=== PATIENT | male | born 1940 | race Hispanic/Latino ===

== ENCOUNTER 2019-09-03 10:11 | Inpatient (IN) | payer MEDICARE, OTHER ==
[2019-09-03 11:11] LABS: Mean Corpuscular HGB CONC 34.3 g/dL (32.0-36.0); Mean Corpuscular Hemoglobin 33.4 pg (27.0-31.0); Mean Corpuscular Volume 97.5 fL (78.0-98.0); Mean Platelet Volume 7.9 fL (7.4-10.4); Platelet Count 250 thou/uL (130-400); RBC Distribution Width 12.9 % (11.5-14.5); White Blood Cell (WBC) Count 14.5 thou/uL (4.8-10.8)
[2019-09-03] MEDS ORDERED: Tuberculin PPD 0.1 ML VIAL I-DERMAL SCH (11:15)
--- NOTE | 2019-09-03 11:27 | HP ---
HISTORY OF PRESENT ILLNESS: Timothy Castillo is an 79-year-old male patient who lives in [place], [place]ian speaking only. He is moved from out of state to be with his family. The patient and his lives with her daughter in [place]. He has been followed by Dr. Pimentel for hypertensive and diabetic nephropathy, chronic kidney disease, progressing to the point that he needs dialysis access. He is brought in today for that. He was told to come to the emergency room, and I was informed that he would be coming in, thus I intercepted, called the family, provided orders and I am seeing him in preoperative holding prior to establishing hemodialysis catheter, possible central line and left arm fistula. He is right handed. 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 ALLERGIES: NONE. TOBACCO: None. ALCOHOL: Rarely. MEDICATIONS: 1. Tylenol 325 mg as needed. 2. Amlodipine 10 mg a day. 3. Aspirin 81 mg a day. 4. Calcitriol 0.5 mcg capsule daily. 5. Carvedilol 6.25 mg daily. 6. Cholecalciferol daily. 7. Colace. 8. Furosemide 20 mg daily. 9. Gemfibrozil 600 mg two tablets b.i.d. 10. Januvia 25 mg daily. 11. Protonix 40 mg a day. 12. Pravastatin 20 mg at bedtime. 13. Sodium bicarbonate daily. 14. Tresiba insulin 200 units per meal subcutaneous. PAST SURGICAL HISTORY: Colonoscopy 2 to 3 [place] ago out of state. PAST MEDICAL HISTORY: Hypertension, diabetes, insulin-dependent. He saw international coordinator in [place] last year. Sounds like he had an EKG and echo for asymptomatic screening and was told his heart was fine. Review of systems negative for cardiac. He had a stroke in March 2019, has been undergoing rehab with left arm weakness. The patient is ambulatory independently. REVIEW OF SYSTEMS: 10 point noncontributory. FAMILY HISTORY: Noncontributory. PHYSICAL EXAMINATION: VITAL SIGNS: Heart rate 65, 94% sats, 150/78. HEAD, EARS EYES, NOSE AND THROAT: Unremarkable. Sclerae nonicteric. SKIN: Nonjaundiced. LUNGS: Clear to auscultation. CARDIAC: Regular rate and rhythm. No murmur or gallop. ABDOMEN: Soft, obese, nontender. EXTREMITIES: Unremarkable. Palpable radial pulses. LABORATORY DATA: Pending. EKG pending. ASSESSMENT AND PLAN: 1. End-stage renal disease. We will order preoperative labs, order preoperative COVID for future dialysis placement outpatient. We will place hemodialysis catheter, central line in the left arm fistula graft. He understands risks of infection, bleeding, reoperation, complications of fistula graft including ischemia, reoperation, thrombosis. 2. Diabetes mellitus. 3. Hypertension. 4. Recent stroke with left arm weakness. Job ID: [id number]
[2019-09-03 11:32] LABS: ALT (SGPT) 9 U/L (8-55); AST (SGOT) 13 U/L (5-34); Albumin 3.4 g/dL (3.4-4.8); Alkaline Phosphatase 67 U/L (40-110); Anion Gap 17 mmol/L (10-20); BUN (Urea Nitrogen) 51 mg/dL (8.4-25.7); Bilirubin, Total 0.3 mg/dL (0.2-1.2); Calc. Creatinine Clearance 0 mL/min (70-130); Calcium 9.3 mg/dL (7.8-10.44); Carbon Dioxide 22 mmol/L (23-31); Chloride 107 mmol/L (98-107); Estimated GFR-MDRD 12; Globulin 2.7 g/dL (2.4-3.5); Glucose 66 mg/dL (83-110); Potassium 4.5 mmol/L (3.5-5.1); Protein, Total 6.1 g/dL (5.8-8.1); Sodium 141 mmol/L (136-145)
[2019-09-03 11:33] LABS: Band 1 % (5-11); Eosinophils 38 % (0-10); Lymphocytes 8 % (21-51); MDiff Complete? YES; Monocytes 9 % (0-10); Neutrophil 43 % (42-75); Platelet Morphology Comment Appears Adequate; RBC Morphology 1
[2019-09-03 12:03] LABS: HBCM Index 0.05 S/CO (0-0.79); Hep B Core Total Ab Non-Reactive (NonReactive); Hep B Core Total Index 0.06 S/CO (0-0.79); Hep C IgG Ab Non-Reactive (NonReactive); Hep C Index 0.17 S/CO (0-0.79); Hepatitis B Core IgM Abs Non-Reactive (NonReactive)
[2019-09-03] MEDS ORDERED: Fentanyl 100 MCG/2 ML VIAL ONE (13:42)
[2019-09-03] MEDS ORDERED: Heparin 5,000 UNITS/ML VIAL ONE (13:42)
[2019-09-03] MEDS ORDERED: Protamine Sulfate 50 MG/5 ML VIAL ONE (13:42)
[2019-09-03] MEDS ORDERED: Bupivacaine 0.25% HCL 30 ML VIAL ONE (13:42)
[2019-09-03] MEDS ORDERED: Heparin 10,000 UNITS/1 ML VIAL ONE (13:42)
[2019-09-03] MEDS ORDERED: Lidocaine 1% w/Epinephrine 1:100K 20 ML VIAL ONE (13:42)
[2019-09-03 14:11] LABS: HBSAg Index 0.15 S/CO (0-0.99); Hep B Core Total Ab Non-Reactive (NonReactive); Hep B Core Total Index 0.07 S/CO (0-0.79); Hep B Surf AB Non-Reactive (NonReactive); Hep B Surf Ag Non-Reactive S/CO (NonReactive); Hep C IgG Ab Non-Reactive (NonReactive); Hep C Index 0.19 S/CO (0-0.79)
[2019-09-03] MEDS ORDERED: Sodium Chloride 0.9% 30 ML ONE (14:27)
[2019-09-03] MEDS ORDERED: Ondansetron HCl/PF 4 MG/2 ML Vial IVP PRN (15:44)
[2019-09-03] MEDS ORDERED: Acetaminophen 500 MG TAB PO PRN (15:54)
--- NOTE | 2019-09-03 16:06 | RAD ---
RADIOGRAPH CHEST 1 VIEW: DATE: 09/03/2019 TIME: 3:54 PM HISTORY: 79-year-old male status post hemodialysis catheter and central venous catheter placement. COMPARISON: None FINDINGS: Double-lumen right IJ catheter with distal tips overlying SVC and SVC right atrial junction. Thin karen iber catheter descending from the left supraclavicular region, presumably left IJ, crossing upper mediastinum with distal tip overlying SVC. No pneumothorax. Cardiomegaly. No pulmonary edema. Silhoue tting of left hemidiaphragm. IMPRESSION: 1. Right-sided hemodialysis catheter placement and left-sided central venous catheter placement, with out pneumothorax. 2. Opacification at left base could be small left pleural effusion, basilar atelectasis, or pneumonia .
[2019-09-03] MEDS ORDERED: Acetaminophen 325 MG TAB PO PRN ×2 (17:49→18:28)
[2019-09-03] MEDS ORDERED: hydrALAZINE 20 MG/ML VIAL SLOW IVP PRN ×2 (17:52→18:28)
[2019-09-03] MEDS ORDERED: cloNIDine 0.1 MG TAB PO PRN ×2 (17:52→18:28)
[2019-09-03 18:25] LABS: SARS-CoV-2 MS2 Positive; SARS-CoV-2 N Gene Negative; SARS-CoV-2 S Gene Negative; SARS-CoV-2 orf1ab Negative
[2019-09-03] MEDS ORDERED: Dextrose 5% in Water 1,000 ML IV PRN (18:28)
[2019-09-03] MEDS ORDERED: Calcium Carbonate 500 MG ChewTAB PO PRN (18:28)
[2019-09-03] MEDS ORDERED: Ondansetron ODT 4 MG TAB PO PRN (18:28)
[2019-09-03] MEDS ORDERED: Dextrose 50% Abboject 50 ML SYRINGE SLOW IVP PRN (18:28)
[2019-09-03] MEDS ORDERED: HumaLOG 300 UNITS/3 ML VIAL SC PRN ×2 (18:28)
--- NOTE | 2019-09-03 18:51 | HP ---
PRIMARY CARE PHYSICIAN: Karlos in [place], who is a family nurse practitioner, and her number is [phone]. REASON FOR ADMISSION: For the placement of a dialysis catheter as well as an AV fistula and preparation for dialysis. HISTORY OF PRESENT ILLNESS: Mr. Garrett is a pleasant 79-year-old gentleman, who has a history of diabetes and hypertension. He is here with his daughter to have an AV fistula and dialysis catheter placed. They live in [place]. The daughter is acting as barn boss and she tells me that her father, Mr. Garrett recently arrived here from [place], where he was visiting other family members. There, he had suffered a stroke a few months back and had some left-sided weakness primarily of his shoulder. He has been undergoing physical therapy for this. He also has a history of chronic kidney disease and had been told that he would likely need dialysis anywhere between 6 months or so. This was by his Crime Scene Evidence Technician in [place]. 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 Dr. Pimentel had done some lab work on the patient and he has been sent over for an elective dialysis access placement and to initiate him on hemodialysis. The patient himself says he does not have any complaints. He denies any chest pain or shortness of breath. He denies feeling dizzy or lightheaded. No nausea. No vomiting. He denies any weakness. Essentially basically no symptoms. REVIEW OF SYSTEMS: All systems were reviewed and are negative except for that mentioned in the history of present illness. PAST MEDICAL HISTORY: Significant for diabetes mellitus, hypertension, elevated cholesterol, end-stage renal disease, on hemodialysis, recent cerebrovascular accident with left arm weakness. PAST SURGICAL HISTORY: Negative. ALLERGIES: NO KNOWN DRUG ALLERGIES. SOCIAL HISTORY: He is . He lives with family. He has 7 children. He is a nonsmoker and nondrinker. FAMILY HISTORY: Essentially unknown, but the daughter says possibly diabetes, hypercholesterolemia, and hypertension. CURRENT MEDICATIONS: Include; 1. Tresiba insulin 10 units daily. 2. Sodium bicarbonate 650 mg 2 tablets daily. 3. Pravastatin 20 mg at bedtime. 4. Pantoprazole 40 mg daily. 5. Acetaminophen 325 mg q.4 hours as needed. 6. Amlodipine 10 mg daily. 7. Aspirin 81 mg daily. 8. Calcitriol 0.5 mcg daily. 9. Carvedilol 6.25 mg daily. 10. Furosemide 20 mg daily. 11. Gemfibrozil 600 mg 2 tablets twice daily. 12. Januvia 25 mg daily. PHYSICAL EXAMINATION: GENERAL: He is alert and oriented. He appears to be in no acute distress. He is well developed and well nourished, very cooperative, smiling and making jokes. VITAL SIGNS: Blood pressure was 141/65, heart rate 65, respiratory rate of 16, and he is afebrile. HEENT: Pupils are equal, round, and reactive. Extraocular muscles are intact. Sclerae anicteric. Throat, no erythema, no exudates. NECK: No adenopathy. No bruits. LUNGS: There is no wheezing, no rales, no rhonchi. CARDIOVASCULAR: He had a normal S1, S2. No S3 or S4. I was able to appreciate a grade 2/6 systolic murmur. ABDOMEN: Obese, it is soft, nontender, and nondistended. Positive for bowel sounds. No rebound. No guarding. No organomegaly. EXTREMITIES: There is no clubbing or cyanosis. No edema. No calf tenderness. No joint effusions. NEUROLOGIC: Grossly nonfocal. SKIN AND INTEGUMENT: It is noted that he is hairless on his calves, but I was able to palpate a dorsalis pedis pulse bilaterally. There are no significant skin lesions. LABORATORY RESULTS: His sodium is 141, potassium 4.5, chloride is 107, CO2 is 22, BUN of 51, creatinine 4.66, glucose is 66. White blood cell count is 14.5, hemoglobin 10, hematocrit is 29.3, and platelet count was 250. He had an EKG that was read as sinus rhythm, the rate was 65. There are no ST wave changes. He had a lone Q-wave in lead III. ASSESSMENT: This is a pleasant 79-year-old gentleman, who has a history of; 1. Chronic kidney disease, stage 5, who is now requiring dialysis. Dr. Pimentel has made a decision to go ahead and initiate hemodialysis. He is being admitted for access placement and also placement into an outpatient dialysis center. The plan is for him to have access placed by Dr. Mott today. 2. Hypertension. Currently his blood pressure is well controlled. Once he is out of surgery, we will restart his home medications as well as p.r.n. medicines as needed. 3. Diabetes mellitus type 2, which is insulin requiring. We will continue a long-acting insulin. We may need to use Lantus in lieu of Tresiba and also place him on sliding scale. 4. He will be placed on deep venous thrombosis as well as continue pantoprazole for gastrointestinal prophylaxis. Job ID: [id number]
--- NOTE | 2019-09-03 18:58 | CON ---
DATE OF CONSULTATION: 09/03/2019 CONSULTING PHYSICIAN: Gerson Mott MD REASON FOR CONSULTATION: End-stage renal disease evaluation and care. REASON FOR ADMISSION: Not feeling well. HISTORY OF PRESENT ILLNESS: This is an 79-year-old male with history of CKD, hypertension, and diabetes, came to the hospital with worsening labs. He follows with Dr. Pimentel. No fever or chills. No nausea or vomiting. PAST MEDICAL HISTORY: Positive for hypertension, diabetes, and chronic kidney disease. PAST SURGICAL HISTORY: Colonoscopy. HOME MEDICATIONS: Reviewed. ALLERGIES: NO KNOWN DRUG ALLERGIES. SOCIAL HISTORY: No smoking, alcohol, or illicit drugs use. FAMILY HISTORY: No history of kidney disease. REVIEW OF SYSTEMS: CONSTITUTIONAL: Negative for weight loss or gain, ability to conduct usual activities. SKIN: Negative for rash, itching. EYES: Negative for double vision, pain. ENT/MOUTH: Negative for nose bleeding, neck stiffness, pain, tenderness. CARDIOVASCULAR: Negative for palpitations, dyspnea on exertion, orthopnea. RESPIRATORY: Negative for shortness of breath, wheezing, cough, hemoptysis, fever or night sweats. GASTROINTESTINAL: Negative for poor appetite, abdominal pain, heartburn, nausea, vomiting, constipation, or diarrhea. GENITOURINARY: Negative for urgency, frequency, dysuria, nocturia. MUSCULOSKELETAL: Negative for pain, swelling. NEUROLOGIC/PSYCHIATRIC: Negative for anxiety, depression. ALLERGY/IMMUNOLOGIC: Negative for skin rash, bleeding tendency. PHYSICAL EXAMINATION: GENERAL: Reveals an obese male, in no apparent distress. VITAL SIGNS: Temperature 98.6, pulse 78, respiratory rate 18, and blood pressure 150/78. HEENT: Atraumatic, normocephalic. Oral mucosa is moist. NECK: Supple. CARDIOVASCULAR: S1 and S2. Rate and rhythm regular. RESPIRATORY: Clear. GASTROINTESTINAL: Abdomen is soft. MUSCULOSKELETAL: 1+ edema. DERMATOLOGIC: No skin rash. NEUROLOGIC: Awake and alert. PSYCHIATRIC: Mood and affect normal. LABORATORY DATA: Hemoglobin is 10.0. Potassium 4.5, BUN is 51, and creatinine is 4.6. ASSESSMENT AND PLAN: 1. End-stage renal disease. Plan to start on dialysis. 2. Edema, controlled. 3. Hypertension. 4. Chronic anemia. Plan to start on dialysis. We will follow. Job ID: [id number]
[2019-09-03 20:01] VITALS: BMI 34.9
[2019-09-03] MEDS: traMADol HCl 50 MG TAB PO PRN (20:26)
[2019-09-03] MEDS: Heparin 5,000 UNITS/ML VIAL SC SCH (20:29)
[2019-09-03] MEDS: Insulin Glargine 8 UNITS in Pre-Filled Syringe 1 EACH SC SCH (20:29)
[2019-09-03] MEDS ORDERED: Simvastatin 20 MG TAB PO SCH (21:00)
[2019-09-04 06:10] LABS: Anion Gap 15 mmol/L (10-20); BUN (Urea Nitrogen) 54 mg/dL (8.4-25.7); Calc. Creatinine Clearance 16 mL/min (70-130); Calcium 9.5 mg/dL (7.8-10.44); Carbon Dioxide 20 mmol/L (23-31); Chloride 107 mmol/L (98-107); Estimated GFR-MDRD 13; Glucose 121 mg/dL (83-110); Potassium 4.2 mmol/L (3.5-5.1); Sodium 138 mmol/L (136-145)
[2019-09-04 06:30] LABS: Eosinophils 37 % (0-10); Hemoglobin 9.7 g/dL (14.0-18.0); Hypochromia SLIGHT = 6-15 cells (100X) (0-5/hpf); Lymphocytes 5 % (21-51); MDiff Complete? YES; Mean Corpuscular HGB CONC 34.8 g/dL (32.0-36.0); Mean Corpuscular Hemoglobin 33.3 pg (27.0-31.0); Mean Corpuscular Volume 95.7 fL (78.0-98.0); Monocytes 5 % (0-10); Neutrophil 53 % (42-75); Platelet Count 231 thou/uL (130-400); Platelet Morphology Comment Appears Adequate; RBC Distribution Width 12.6 % (11.5-14.5); White Blood Cell (WBC) Count 14.2 thou/uL (4.8-10.8)
[2019-09-04] MEDS ORDERED: Gemfibrozil 600 MG TAB PO SCH (07:30)
[2019-09-04] MEDS: Carvedilol 6.25 MG TAB PO SCH (08:42)
[2019-09-04] MEDS: Calcitriol 0.25 MCG CAP PO SCH (08:42)
[2019-09-04] MEDS: Heparin 5,000 UNITS/ML VIAL SC SCH ×3 (08:42→20:07)
[2019-09-04] MEDS: Furosemide 20 MG TAB PO SCH (08:42)
[2019-09-04] MEDS: Aspirin 81 mg Enteric Coated Tablet PO SCH (08:42)
[2019-09-04] MEDS: Amlodipine 10 MG TAB PO SCH (08:42)
[2019-09-04] MEDS ORDERED: Non-Formulary Item 1 EACH (Insulin Detemir [Levemir] 10 UNITS) SQ SCH (09:00)
[2019-09-04] MEDS ORDERED: Pantoprazole 40 MG GRANULES PACKET PO SCH (09:00)
[2019-09-04] MEDS ORDERED: Alogliptin 6.25 MG TAB PO SCH (09:30)
[2019-09-04] MEDS: Docusate 100 MG CAP PO SCH (09:55)
[2019-09-04] MEDS: HYDROcodone/Acetaminophen 5/325 mg Tablet PO PRN ×2 (10:55→17:56)
--- NOTE | 2019-09-04 11:27 | PDOC.HOSPP ---
- Subjective Encounter Date: 09/04/19 Encounter Time: 11:45 Subjective: pt up in bed complain of pain to his left shoulder. He denies any trauma. - Objective Vital Signs & Weight: Vital Signs (12 hours) Temp Pulse Resp BP BP Pulse Ox 09/04/19 09:00 95 09/04/19 08:42 76 162/77 H 09/04/19 07:20 98.0 F 76 18 162/77 H 95 09/04/19 04:00 98 F 78 18 145/88 H 97 09/04/19 00:00 97.9 F 64 18 147/73 H 94 L Weight Weight 185 lb Result Diagrams: 09/04/19 05:11 09/04/19 05:11 Additional Labs: Accuchecks 09/04/19 09/03/19 05:25 20:26 POC Glucose 140 H 99 Hospitalist ROS - Review of Systems Cardiovascular: denies: chest pain, palpitations, orthopnea, paroxysmal noc. dyspnea, edema, light headedness, other Gastrointestinal: denies: nausea, vomiting, abdominal pain, diarrhea, constipation, melena, hematochezia, other Musculoskeletal: reports: arm pain Skin: denies: rash, lesions, sandra, bruising, other - Medication Medications: Active Medications Generic Name Dose Route Start Last Admin Trade Name Freq PRN Reason Stop Dose Admin Acetaminophen 325 mg 09/03/19 18:28 09/03/19 20:27 Tylenol PO 325 mg Q4H PRN Administration Headache/Fever/Mild Pain (1-3) Hydrocodone Bitart/Acetaminophen 1 tab 09/03/19 18:28 09/04/19 10:55 [place] 5/325 PO 1 tab Q4H PRN Administration Moderate Pain (4-6) Alogliptin Benzoate 6.25 mg 09/04/19 09:30 09/04/19 09:59 Alogliptin PO 09/04/19 11:30 6.25 mg NOW LANRE Administration Amlodipine Besylate 10 mg 09/04/19 09:00 09/04/19 08:42 Norvasc PO 10 mg DAILY LANRE Administration Aspirin 81 mg 09/04/19 09:00 09/04/19 08:42 Ecotrin PO 81 mg DAILY LANRE Administration Calcitriol 0.5 mcg 09/04/19 09:00 09/04/19 08:42 Rocaltrol PO 0.5 mcg DAILY LANRE Administration Carvedilol 6.25 mg 09/04/19 09:00 09/04/19 08:42 Coreg PO 6.25 mg DAILY LANRE Administration Cholecalciferol 5,000 units 09/04/19 09:00 09/04/19 09:55 Vitamin D3 PO 5,000 units DAILY LANRE Administration Docusate Sodium 100 mg 09/04/19 09:00 09/04/19 09:55 Colace PO 100 mg DAILY LANRE Administration Furosemide 20 mg 09/04/19 09:00 09/04/19 08:42 Lasix PO 20 mg DAILY LANRE Administration Heparin Sodium (Porcine) 5,000 units 09/03/19 21:00 09/04/19 08:42 Heparin SC 5,000 units TID LANRE Administration Insulin Glargine 8 units/ 0.08 mls @ 0 mls/hr 09/03/19 21:00 09/03/19 20:29 Miscellaneous Medication SC Not Given HS LANRE Pantoprazole Sodium 40 mg 09/04/19 10:00 09/04/19 10:00 Protonix PO 09/04/19 12:00 40 mg NOW LANRE Administration Tramadol HCl 50 mg 09/03/19 15:54 09/03/19 20:26 Ultram PO 50 mg Q4H PRN Administration Pain 1-5 - Exam Heart: negative: RRR, no murmur, no gallops, no rubs, normal peripheral pulses, irregular, diminshed peripheral pulses, murmur present, II/IV, III/IV Respiratory: negative: CTAB, no wheezes, no rales, no ronchi, normal chest expansion, no tachypnea, normal percussion, rales, rhonchi, tachypneic, wheezes Gastrointestinal: negative: soft, non-tender, non-distended, normal bowel sounds , no palpable masses, no hepatomegaly, no splenomegaly, no bruit, no guarding, no rigidity, tender to palpation, distended, diminished bowl sounds, voluntary guarding Extremities: negative: no cyanosis, no clubbing, no edema, 1+ LE edema, 2+ LE edema, clubbing Musculoskeletal - other findings: left shoulder joint pain on palpation Hosp A/P (1) CKD (chronic kidney disease) stage 5, GFR 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 He is to start dialysis per nephro. He has a TD cath in right chest wall. will get xray of left shoulder. will hold his gemfibrozil due to his worsening creatinine clearance. He has significant eosinophilia, will call his daughter to see if any new meds have been started. He also has elevated wbc. will obtain his previous lab records from [place].
--- NOTE | 2019-09-04 11:58 | RAD ---
LEFT SHOULDER THREE VIEWS: HISTORY: Pain. COMPARISON: None. FINDINGS: There is narrowing of the subacromial space. No acute displaced fracture or malalignment. Ribs are in tact. Central venous catheter is incompletely seen. IMPRESSION: Likely left rotator cuff insufficiency. No acute osseous abnormality. POS: HOME
--- NOTE | 2019-09-04 12:22 | PRG ---
DATE OF SERVICE: 09/04/2019 SUBJECTIVE: Patient was seen and examined at bedside and overnight events noted. Patient denies any shortness of breath or chest pain or palpitation. No history of nausea or vomiting or diarrhea or fever or chills or cramps. OBJECTIVE: GENERAL: This is a well-built male, in no acute distress. VITAL SIGNS: Temperature 98.0. Heart rate 76. Respiratory rate 18. Blood pressure 162/77. HEENT: Atraumatic, normocephalic. Oral mucosa is moist NECK: Supple. CARDIOVASCULAR: S1, S2 heard. Rate and rhythm regular. RESPIRATORY: Clear to auscultation. GASTROINTESTINAL: Abdomen is soft. MUSCULOSKELETAL: No tenderness. No edema. DERMATOLOGIC: No skin rash. NEUROLOGIC: Alert and awake and oriented X3. No focal neurologic deficits. Moving all the extremities. PSYCHIATRIC: Mood and affect normal. LABORATORY DATA: Potassium 4.2, BUN is 54, and creatinine is 4.3. ASSESSMENT AND PLAN: 1. End-stage renal disease. Continue on dialysis as tolerated. 2. Edema, controlled. 3. Hypertension. 4. Anemia of chronic disease. We will plan to start on dialysis. Job ID: [id number]
[2019-09-04] MEDS: EPOETIN ALFA-EPBX (ESRD) 3,000 UNIT/ML VIAL IVP SCH (15:22)
[2019-09-04] MEDS: Cyclobenzaprine 10 MG TAB PO SCH ×2 (15:42→20:07)
[2019-09-04] MEDS: Simvastatin 5 MG TAB PO SCH (20:08)
[2019-09-04] MEDS: Insulin Glargine 8 UNITS in Pre-Filled Syringe 1 EACH SC SCH (20:08)
[2019-09-04] MEDS: traMADol HCl 50 MG TAB PO PRN (20:09)
[2019-09-05] MEDS: HYDROcodone/Acetaminophen 5/325 mg Tablet PO PRN ×2 (01:20→09:48)
--- NOTE | 2019-09-05 05:00 | OP ---
DATE OF PROCEDURE: 09/03/2019 PREOPERATIVE DIAGNOSES: Poor IV access and end-stage renal disease. POSTOPERATIVE DIAGNOSES: 1. Poor IV access and end-stage renal disease. 2. Admission to initiate dialysis and providing dialysis access. PROCEDURES PERFORMED: Right IJ cuffed tunneled hemodialysis catheter, AngioDynamics pre-curved. Left IJ central line, exploration of left wrist. FINDINGS: Cephalic vein of left wrist inadequate. Left arm primary arteriovenous fistula, perforating branch antecubital vein to the proximal radial artery with outflow cephalic vein only. Basilic vein outflow ligated. Retrograde and antecubital vein preserved. ANESTHESIA: Regional, TIVA, local with 0.5% Marcaine 30 mL mixed with 1% Xylocaine with epinephrine 20 mL. DESCRIPTION OF PROCEDURE: Patient was taken to the operating room, where he underwent intravenous sedation and left upper extremity regional anesthesia. Neck, chest, and left upper extremity were prepared with ChloraPrep and draped in routine fashion. Local anesthetic was infiltrated in the skin and subcutaneous tissue about the operative sites for placement of central lines. Ultrasound used to cannulate both the right and left internal jugular veins, threading J wires, removed the trocar catheters, enlarging skin site sharply. Stab incision was made over the right chest. Using the tunneling device, the pre-curved AngioDynamics cuffed tunneled. Hemodialysis catheter tunneled between the 2 incisions, placed the fabric cuff beneath the skin exit site, catheter secured with 2 interrupted sutures of 3-0 nylon. Small and medium size dilators placed over the J-wire into the internal jugular vein removed. Dilator and Peel-Away sheath placed over the J-wire in superior vena cava. Dilator and J-wire were removed. Catheter placed with the Peel-Away sheath. Peel-Away sheath removed. Platysma was approximated with 4-0 Monocryl, skin with subdermal 4-0 Monocryl and [place] glue applied. Each port aspirated blood and flushed with saline solution and heparinized saline solution 1000 units of heparin per mL indicating volume of the port. Seldinger technique used to place a left IJ triple-lumen catheter, removing the J-wire, secured the catheter 3-0 nylon suture. Each port aspirated blood, flushed with saline solution. Fluoroscopic images revealed good placement of both lines. Attention was then turned to the left arm. A longitudinal incision was made below the antecubital fossa along skin and subcutaneous tissue and the antecubital vein was large enough that I thought it was worth exploring the left wrist. Wrist incision was made. Cephalic vein here was too small. Subcutaneous tissue was approximated with 3-0 Monocryl, skin and subdermal 4-0 Monocryl. Perforating branch antecubital vein dissected free, branches were divided between clips. It was spatulated over branch point, interrogated with coronary dilators, passing coronary dilators from 2 mm to 4 mm coronary dilator throughout the cephalic vein without obstruction. Cephalic vein was very large. It was flushed with heparinized saline solution. Patient was given 6000 units of heparin intravenously. Proximal radial artery dissected free, clamped proximally and distally, longitudinal arteriotomy made, elongated sharply and the end perforating branch antecubital vein to side proximal radial artery, anastomosis created with continuous suture of 6-0 Prolene, completing the anastomosis, gained hemostasis with 6-0 Prolene releasing arterial inflow and noting good Doppler signals cephalic vein outflow. Basilic vein was ligated with 3-0 Monocryl suture. Retrograde and antecubital vein preserved. Good hemostasis noted. Patient was given 25 mg of protamine intravenously by Anesthesia. Subcutaneous tissue was approximated with 3-0 Monocryl, skin with subdermal 4-0 Monocryl and [place] glue applied. Job ID: [id number]
[2019-09-05] MEDS ORDERED: READ PPD TEST SITE PO SCH (09:00)
[2019-09-05] MEDS: Alogliptin 6.25 MG TAB PO SCH (09:45)
[2019-09-05] MEDS: Cyclobenzaprine 10 MG TAB PO SCH ×3 (09:46→20:14)
[2019-09-05] MEDS: Carvedilol 6.25 MG TAB PO SCH (09:46)
[2019-09-05] MEDS: Aspirin 81 mg Enteric Coated Tablet PO SCH (09:46)
[2019-09-05] MEDS: Furosemide 20 MG TAB PO SCH (09:46)
[2019-09-05] MEDS: Calcitriol 0.25 MCG CAP PO SCH (09:47)
[2019-09-05] MEDS: Docusate 100 MG CAP PO SCH (09:47)
[2019-09-05] MEDS: Heparin 5,000 UNITS/ML VIAL SC SCH ×3 (09:48→20:18)
[2019-09-05] MEDS: Amlodipine 10 MG TAB PO SCH (09:48)
[2019-09-05 10:34] LABS: Hemoglobin 9.4 g/dL (14.0-18.0); Mean Corpuscular HGB CONC 34.5 g/dL (32.0-36.0); Mean Corpuscular Hemoglobin 33.7 pg (27.0-31.0); Mean Corpuscular Volume 97.6 fL (78.0-98.0); Mean Platelet Volume 8.4 fL (7.4-10.4); Platelet Count 213 thou/uL (130-400); RBC Distribution Width 12.8 % (11.5-14.5); Red Blood Cell (RBC) Count 2.79 mill/uL (4.70-6.10); White Blood Cell (WBC) Count 12.9 thou/uL (4.8-10.8)
[2019-09-05 10:50] LABS: Anion Gap 14 mmol/L (10-20); BUN (Urea Nitrogen) 30 mg/dL (8.4-25.7); Calc. Creatinine Clearance 20 mL/min (70-130); Calcium 8.9 mg/dL (7.8-10.44); Carbon Dioxide 23 mmol/L (23-31); Chloride 103 mmol/L (98-107); Estimated GFR-MDRD 17; Glucose 167 mg/dL (83-110); Potassium 3.5 mmol/L (3.5-5.1); Sodium 136 mmol/L (136-145)
--- NOTE | 2019-09-05 11:05 | PRG ---
DATE OF SERVICE: 09/05/2019 Gerry is doing well today. He is undergoing dialysis. On 09/03/2019, he underwent hemodialysis catheter placement, central line placement, and left arm primary AV fistula, inflow in proximal radial artery, outflow in cephalic vein only (communication basilic vein ligated). He has good thrill and bruit over his fistula. Hand function is good. At this point, I will see him as needed. He should exercise with the left arm and use it without restriction. He should follow up in my office in 3 to 4 weeks. He should continue to use his hemodialysis catheter for hemodialysis access until I evaluate his fistula as an outpatient to see when it is ready to access and convert access in his left arm. We will plan to remove his triple-lumen catheter prior to discharge and use this for IV access and blood draws and we would not remove it until discharge. Job ID: [id number]
[2019-09-05 12:20] LABS: Eosinophils 42 % (0-10); Lymphocytes 13 % (21-51); MDiff Complete? YES; Monocytes 6 % (0-10); Neutrophil 39 % (42-75); Platelet Morphology Comment Appears Adequate
--- NOTE | 2019-09-05 16:22 | PRG ---
DATE OF SERVICE: 09/05/2019 SUBJECTIVE: Patient was seen and examined at bedside and overnight events noted. Patient denies any shortness of breath or chest pain or palpitation. No history of nausea or vomiting or diarrhea or fever or chills or cramps. OBJECTIVE: GENERAL: This is an obese male, in no apparent distress. VITAL SIGNS: Temperature 97.9. Heart rate 80. Respiratory rate 18. Blood pressure 149/70. HEENT: Atraumatic, normocephalic. Oral mucosa is moist. NECK: Supple. CARDIOVASCULAR: S1, S2 heard. Rate and rhythm regular. RESPIRATORY: Clear to auscultation. GASTROINTESTINAL: Abdomen is soft. MUSCULOSKELETAL: No tenderness. No edema. DERMATOLOGIC: No skin rash. NEUROLOGIC: Alert and awake and oriented x3. No focal neurologic deficits. Moving all the extremities. PSYCHIATRIC: Mood and affect normal. LABORATORY DATA: Potassium 3.5, BUN is 30, and creatinine is 3.4. ASSESSMENT AND PLAN: 1. End-stage renal disease. Continue dialysis. 2. History of hypertension. 3. Edema. 4. Anemia. PLAN: To continue on dialysis as tolerated. Follow with Case Management for outpatient placement. Job ID: [id number]
--- NOTE | 2019-09-05 19:43 | PDOC.HOSPP ---
- Subjective Encounter Date: 09/05/19 Encounter Time: 10:30 Subjective: pt up in bed complains of mild pain to his left shoulder - Objective Vital Signs & Weight: Vital Signs (12 hours) Temp Pulse Resp BP BP BP Pulse Ox 09/05/19 16:00 97.9 F 71 18 146/85 H 95 09/05/19 09:48 88 149/77 H 09/05/19 09:46 149/77 H 09/05/19 09:44 97.9 F 88 18 149/70 H 96 Weight Weight 185 lb I&O: 09/04/19 09/05/19 09/06/19 06:59 06:59 06:59 Intake Total 1440 1000 Output Total 600 Balance 840 1000 Result Diagrams: 09/05/19 10:11 09/05/19 10:11 Additional Labs: Accuchecks 09/05/19 09/05/19 09/05/19 11:14 06:38 06:07 POC Glucose 137 H 88 67 L 09/04/19 20:09 POC Glucose 250 H Hospitalist ROS - Review of Systems Cardiovascular: denies: chest pain, palpitations, orthopnea, paroxysmal noc. dyspnea, edema, light headedness, other Gastrointestinal: denies: nausea, vomiting, abdominal pain, diarrhea, constipation, melena, hematochezia, other Musculoskeletal: reports: shoulder pain - Medication Medications: Active Medications Generic Name Dose Route Start Last Admin Trade Name Freq PRN Reason Stop Dose Admin Acetaminophen 325 mg 09/03/19 18:28 09/03/19 20:27 Tylenol PO 325 mg Q4H PRN Administration Headache/Fever/Mild Pain (1-3) Hydrocodone Bitart/Acetaminophen 1 tab 09/03/19 18:28 09/05/19 09:48 [place] 5/325 PO 1 tab Q4H PRN Administration Moderate Pain (4-6) Alogliptin Benzoate 6.25 mg 09/05/19 09:00 09/05/19 09:45 Alogliptin PO 6.25 mg DAILY [facility] Administration Amlodipine Besylate 10 mg 09/04/19 09:00 09/05/19 09:48 Norvasc PO 10 mg DAILY [facility] Administration Aspirin 81 mg 09/04/19 09:00 09/05/19 09:46 Ecotrin PO 81 mg DAILY [facility] Administration Calcitriol 0.5 mcg 09/04/19 09:00 09/05/19 09:47 Rocaltrol PO 0.5 mcg DAILY [facility] Administration Carvedilol 6.25 mg 09/04/19 09:00 09/05/19 09:46 Coreg PO 6.25 mg DAILY [facility] Administration Cholecalciferol 5,000 units 09/04/19 09:00 09/05/19 09:47 Vitamin D3 PO 5,000 units DAILY [facility] Administration Cyclobenzaprine HCl 5 mg 09/04/19 15:00 09/05/19 14:06 Flexeril PO 5 mg TID [facility] Administration Docusate Sodium 100 mg 09/04/19 09:00 09/05/19 09:47 Colace PO Not Given DAILY [facility] Epoetin Del-epbx 3,000 unit 09/04/19 14:00 09/04/19 15:22 Retacrit IVP Not Given TuTa [facility] Furosemide 20 mg 09/04/19 09:00 09/05/19 09:46 Lasix PO 20 mg DAILY [facility] Administration Heparin Sodium (Porcine) 5,000 units 09/03/19 21:00 09/05/19 14:03 Heparin SC Not Given TID [facility] Insulin Glargine 8 units/ 0.08 mls @ 0 mls/hr 09/03/19 21:00 09/04/19 20:08 Miscellaneous Medication SC 0.08 mls HS [facility] Administration Insulin Human Lispro 0 units 09/03/19 18:28 09/04/19 17:53 Humalog SC 2 unit .MODERATE SLIDING SC PRN Administration Moderate Correctional Scale Insulin Human Lispro 0 units 09/03/19 18:28 09/04/19 20:06 Humalog SC 2 unit .BEDTIME SLIDING SC PRN Administration Bedtime Correctional Scale Pantoprazole Sodium 40 mg 09/05/19 09:00 09/05/19 09:47 Protonix PO 40 mg DAILY [facility] Administration Simvastatin 10 mg 09/04/19 21:00 09/04/19 20:08 Zocor PO 10 mg HS [facility] Administration Tramadol HCl 50 mg 09/03/19 15:54 09/04/19 20:09 Ultram PO 50 mg Q4H PRN Administration Pain 1-5 - Exam Heart: negative: RRR, no murmur, no gallops, no rubs, normal peripheral pulses, irregular, diminshed peripheral pulses, murmur present, II/IV, III/IV Respiratory: rales Gastrointestinal: negative: soft, non-tender, non-distended, normal bowel sounds , no palpable masses, no hepatomegaly, no splenomegaly, no bruit, no guarding, no rigidity, tender to palpation, distended, diminished bowl sounds, voluntary guarding Extremities: 2+ LE edema Hosp A/P (1) CKD (chronic kidney disease) stage 5, GFR 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 He is to start dialysis per nephro. He has a TD cath in right chest wall. will get xray of left shoulder. will hold his gemfibrozil due to his worsening creatinine clearance. He has significant eosinophilia, will call his daughter to see if any new meds have been started. He also has elevated wbc. will obtain his previous lab records from [place]. 09/04 continue dialysis per nephrology. pt continues to have eosinophilia
[2019-09-05] MEDS: traMADol HCl 50 MG TAB PO PRN (20:15)
[2019-09-05] MEDS: Simvastatin 5 MG TAB PO SCH (20:15)
[2019-09-05] MEDS: Insulin Glargine 8 UNITS in Pre-Filled Syringe 1 EACH SC SCH (21:02)
[2019-09-06] MEDS: Amlodipine 10 MG TAB PO SCH (09:00)
[2019-09-06] MEDS: Carvedilol 6.25 MG TAB PO SCH (09:00)
[2019-09-06] MEDS: Alogliptin 6.25 MG TAB PO SCH (09:00)
[2019-09-06] MEDS: Heparin 5,000 UNITS/ML VIAL SC SCH ×3 (09:00→21:30)
[2019-09-06] MEDS: Cyclobenzaprine 10 MG TAB PO SCH ×3 (09:00→21:29)
--- NOTE | 2019-09-06 10:21 | PRG ---
DATE OF SERVICE: 09/06/2019 SUBJECTIVE: An 79-year-old gentleman, being seen for end-stage renal disease. The patient denied nausea, vomiting, or chest pain. OBJECTIVE: GENERAL: The patient is awake and alert. VITAL SIGNS: Afebrile, blood pressure 119/47. HEENT: Head normocephalic and atraumatic. Eyes intact, no ulcers. Nose intact, no ulcers. Ears intact, no ulcers. Neck: Supple. No JVD. Chest: Symmetrical and clear. Cardiovascular: Shows S1 and S2, no rub, no murmur. Gastrointestinal: Abdomen is soft, bowel sounds positive. Extremities: Show no edema or ulcers. Skin: Shows no rash or petechiae. Musculoskeletal: Shows no joint swelling or stiffness. Genitourinary: Shows no Crum or CVA tenderness. Neurologic: Motor intact. Cranial nerves intact. LABORATORY DATA: Reviewed. ASSESSMENT: 1. Stage chronic kidney disease, stable. 2. Hypertensive anemia, stable. 3. Medication based on GFR appropriate. Job ID: [id number]
[2019-09-06] MEDS: Calcitriol 0.25 MCG CAP PO SCH (14:12)
[2019-09-06] MEDS: Docusate 100 MG CAP PO SCH (14:12)
[2019-09-06] MEDS: Aspirin 81 mg Enteric Coated Tablet PO SCH (14:12)
[2019-09-06] MEDS: Furosemide 20 MG TAB PO SCH (14:13)
[2019-09-06] MEDS: HYDROcodone/Acetaminophen 5/325 mg Tablet PO PRN (16:38)
[2019-09-06] MEDS: Simvastatin 5 MG TAB PO SCH (21:29)
[2019-09-06] MEDS: Insulin Glargine 8 UNITS in Pre-Filled Syringe 1 EACH SC SCH (21:30)
[2019-09-07 07:26] LABS: Mean Corpuscular HGB CONC 33.5 g/dL (32.0-36.0); Mean Corpuscular Hemoglobin 32.4 pg (27.0-31.0); Mean Corpuscular Volume 96.8 fL (78.0-98.0); Mean Platelet Volume 7.8 fL (7.4-10.4); Platelet Count 198 thou/uL (130-400); RBC Distribution Width 12.7 % (11.5-14.5); Red Blood Cell (RBC) Count 2.78 mill/uL (4.70-6.10); White Blood Cell (WBC) Count 12.7 thou/uL (4.8-10.8)
[2019-09-07 07:50] LABS: Band 10 % (5-11); Eosinophils 29 % (0-10); Lymphocytes 14 % (21-51); MDiff Complete? YES; Metamyelocyte 2 % (0-0); Monocytes 1 % (0-10); Neutrophil 40 % (42-75); Reactive Lymphocytes 3 % (0-10)
[2019-09-07] MEDS ORDERED: Famotidine/PF 20 mg/2ml Vial SLOW IVP SCH (09:00)
[2019-09-07] MEDS: Calcitriol 0.25 MCG CAP PO SCH (09:43)
[2019-09-07] MEDS: Cyclobenzaprine 10 MG TAB PO SCH ×3 (09:44→21:14)
[2019-09-07] MEDS: Alogliptin 6.25 MG TAB PO SCH (09:44)
[2019-09-07] MEDS: Aspirin 81 mg Enteric Coated Tablet PO SCH (09:45)
[2019-09-07] MEDS: Amlodipine 10 MG TAB PO SCH (09:45)
[2019-09-07] MEDS: Docusate 100 MG CAP PO SCH (09:45)
[2019-09-07] MEDS: Carvedilol 6.25 MG TAB PO SCH (09:45)
[2019-09-07] MEDS: Furosemide 20 MG TAB PO SCH (09:45)
[2019-09-07] MEDS: Heparin 5,000 UNITS/ML VIAL SC SCH ×3 (09:45→21:14)
[2019-09-07] MEDS: traMADol HCl 50 MG TAB PO PRN (12:14)
--- NOTE | 2019-09-07 13:00 | PRG ---
DATE OF SERVICE: 09/07/2019 SUBJECT: An 79-year-old gentleman, being seen for end-stage kidney disease. The patient denied nausea, vomiting, or chest pain. OBJECTIVE: General: The patient is awake and alert. Vital Signs: Afebrile, pulse 75, breathing 16, and blood pressure 127/60. HEENT: Head normocephalic and atraumatic. Eyes intact, no ulcers. Nose intact, no ulcers. Ears intact, no ulcers. Neck: Supple. No JVD. Chest: Symmetrical and clear. Cardiovascular: Shows S1 and S2, no rub, no murmur. Gastrointestinal: Abdomen is soft, bowel sounds positive. Extremities: Show no edema or ulcers. Skin: Shows no rash or petechiae. Musculoskeletal: Shows no joint swelling or stiffness. Genitourinary: Shows no Crum or CVA tenderness. Neurologic: Motor intact. Cranial nerves intact. LABORATORY DATA: Reviewed. ASSESSMENT AND PLAN: 1. Stage 6 chronic kidney disease, continue hemodialysis. 2. Hypertension, stable. 3. Anemia, stable. 4. Medications based on GFR appropriate. Job ID: [id number]
[2019-09-07] MEDS: EPOETIN ALFA-EPBX (ESRD) 3,000 UNIT/ML VIAL IVP SCH (18:25)
[2019-09-07] MEDS: Simvastatin 5 MG TAB PO SCH (21:15)
[2019-09-07] MEDS: Insulin Glargine 8 UNITS in Pre-Filled Syringe 1 EACH SC SCH (21:33)
[2019-09-08 05:42] LABS: Eosinophils 42 % (0-10); Hemoglobin 8.3 g/dL (14.0-18.0); Hypochromia SLIGHT = 6-15 cells (100X) (0-5/hpf); Lymphocytes 9 % (21-51); MDiff Complete? YES; Mean Corpuscular HGB CONC 34.1 g/dL (32.0-36.0); Mean Corpuscular Hemoglobin 32.9 pg (27.0-31.0); Mean Corpuscular Volume 96.4 fL (78.0-98.0); Monocytes 7 % (0-10); Neutrophil 42 % (42-75); Nucleated RBC 1 % (0); Platelet Count 204 thou/uL (130-400); Platelet Morphology Comment Appears Adequate; RBC Distribution Width 12.8 % (11.5-14.5); Red Blood Cell (RBC) Count 2.53 mill/uL (4.70-6.10); White Blood Cell (WBC) Count 10.2 thou/uL (4.8-10.8)
--- NOTE | 2019-09-08 05:58 | PDOC.HOSPP ---
- Subjective Encounter Date: 09/06/19 Encounter Time: 10:30 Subjective: pt up in bed no complains - Objective Vital Signs & Weight: Vital Signs (12 hours) Temp Pulse Resp BP Pulse Ox 09/07/19 20:00 93 L 09/07/19 19:15 98.2 F 78 20 105/51 L 93 L Weight Weight 185 lb I&O: 09/06/19 09/07/19 09/08/19 06:59 06:59 06:59 Intake Total 1470 1220 Output Total 1700 Balance 1470 -480 Result Diagrams: 09/08/19 05:04 09/05/19 10:11 Additional Labs: Accuchecks 09/07/19 09/07/19 09/07/19 19:25 17:07 11:33 POC Glucose 166 H 117 H 100 09/07/19 06:12 POC Glucose 103 Hospitalist ROS - Review of Systems Cardiovascular: denies: chest pain, palpitations, orthopnea, paroxysmal noc. dyspnea, edema, light headedness, other Gastrointestinal: denies: nausea, vomiting, abdominal pain, diarrhea, constipation, melena, hematochezia, other Genitourinary: denies: dysuria, frequency, incontinence, hematuria, retention, other - Medication Medications: Active Medications Generic Name Dose Route Start Last Admin Trade Name Freq PRN Reason Stop Dose Admin Acetaminophen 325 mg 09/03/19 18:28 09/03/19 20:27 Tylenol PO 325 mg Q4H PRN Administration Headache/Fever/Mild Pain (1-3) Hydrocodone Bitart/Acetaminophen 1 tab 09/03/19 18:28 09/06/19 16:38 [place] 5/325 PO 1 tab Q4H PRN Administration Moderate Pain (4-6) Alogliptin Benzoate 6.25 mg 09/05/19 09:00 09/07/19 09:44 Alogliptin PO 6.25 mg DAILY [facility] Administration Amlodipine Besylate 10 mg 09/04/19 09:00 09/07/19 09:45 Norvasc PO 10 mg DAILY [facility] Administration Aspirin 81 mg 09/04/19 09:00 09/07/19 09:45 Ecotrin PO 81 mg DAILY [facility] Administration Calcitriol 0.5 mcg 09/04/19 09:00 09/07/19 09:43 Rocaltrol PO 0.5 mcg DAILY [facility] Administration Carvedilol 6.25 mg 09/04/19 09:00 09/07/19 09:45 Coreg PO 6.25 mg DAILY [facility] Administration Cholecalciferol 5,000 units 09/04/19 09:00 09/07/19 09:43 Vitamin D3 PO 5,000 units DAILY [facility] Administration Clonidine 0.1 mg 09/03/19 18:28 09/06/19 16:38 Catapres PO 0.1 mg Q4H PRN Administration SBP Greater Than 170 Cyclobenzaprine HCl 5 mg 09/04/19 15:00 09/07/19 21:14 Flexeril PO 5 mg TID [facility] Administration Docusate Sodium 100 mg 09/04/19 09:00 09/07/19 09:45 Colace PO 100 mg DAILY [facility] Administration Epoetin Del-epbx 3,000 unit 09/04/19 14:00 09/07/19 18:25 Retacrit IVP 3,000 unit TuThSa [facility] Administration Furosemide 20 mg 09/04/19 09:00 09/07/19 09:45 Lasix PO 20 mg DAILY [facility] Administration Heparin Sodium (Porcine) 5,000 units 09/03/19 21:00 09/07/19 21:14 Heparin SC 5,000 units TID [facility] Administration Insulin Glargine 8 units/ 0.08 mls @ 0 mls/hr 09/03/19 21:00 09/07/19 21:33 Miscellaneous Medication SC 0.08 mls HS [facility] Administration Insulin Human Lispro 0 units 09/03/19 18:28 09/04/19 17:53 Humalog SC 2 unit .MODERATE SLIDING SC PRN Administration Moderate Correctional Scale Insulin Human Lispro 0 units 09/03/19 18:28 09/04/19 20:06 Humalog SC 2 unit .BEDTIME SLIDING SC PRN Administration Bedtime Correctional Scale Pantoprazole Sodium 40 mg 09/05/19 09:00 09/07/19 09:46 Protonix PO 40 mg DAILY [facility] Administration Simvastatin 10 mg 09/04/19 21:00 09/07/19 21:15 Zocor PO 10 mg HS [facility] Administration Sodium Chloride 10 ml 09/07/19 09:00 09/07/19 21:15 Flush - Normal Saline IVF 10 ml Q12HR [facility] Administration Tramadol HCl 50 mg 09/03/19 15:54 09/07/19 12:14 Ultram PO 50 mg Q4H PRN Administration Pain 1-5 - Exam Neck: negative: supple, symmetric, no JVD, no thyromegaly, no lymphadenopathy, no carotid bruit, JVD Heart: negative: RRR, no murmur, no gallops, no rubs, normal peripheral pulses, irregular, diminshed peripheral pulses, murmur present, II/IV, III/IV Respiratory: negative: CTAB, no wheezes, no rales, no ronchi, normal chest expansion, no tachypnea, normal percussion, rales, rhonchi, tachypneic, wheezes Gastrointestinal: negative: soft, non-tender, non-distended, normal bowel sounds , no palpable masses, no hepatomegaly, no splenomegaly, no bruit, no guarding, no rigidity, tender to palpation, distended, diminished bowl sounds, voluntary guarding Hosp A/P (1) CKD (chronic kidney disease) stage 5, GFR 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 He is to start dialysis per nephro. He has a TD cath in right chest wall. will get xray of left shoulder. will hold his gemfibrozil due to his worsening creatinine clearance. He has significant eosinophilia, will call his daughter to see if any new meds have been started. He also has elevated wbc. will obtain his previous lab records from [place]. 5/ continue dialysis per nephrology. pt continues to have eosinophilia 5/4 pt continues to have eosinophilia. Awaiting records. His left should pain is improved.
--- NOTE | 2019-09-08 06:00 | PDOC.HOSPP ---
- Subjective Encounter Date: 09/07/19 Encounter Time: 11:15 Subjective: pt up in bed complains of some pain to his epigastric area. - Objective Vital Signs & Weight: Vital Signs (12 hours) Temp Pulse Resp BP Pulse Ox 09/07/19 20:00 93 L 09/07/19 19:15 98.2 F 78 20 105/51 L 93 L Weight Weight 185 lb I&O: 09/06/19 09/07/19 09/08/19 06:59 06:59 06:59 Intake Total 1470 1220 Output Total 1700 Balance 1470 -480 Result Diagrams: 09/08/19 05:04 09/05/19 10:11 Additional Labs: Accuchecks 09/07/19 09/07/19 09/07/19 19:25 17:07 11:33 POC Glucose 166 H 117 H 100 09/07/19 06:12 POC Glucose 103 Hospitalist ROS - Review of Systems Cardiovascular: denies: chest pain, palpitations, orthopnea, paroxysmal noc. dyspnea, edema, light headedness, other Gastrointestinal: reports: abdominal pain Genitourinary: denies: dysuria, frequency, incontinence, hematuria, retention, other Musculoskeletal: denies: neck pain, shoulder pain, arm pain, back pain, hand pain, leg pain, foot pain, other - Medication Medications: Active Medications Generic Name Dose Route Start Last Admin Trade Name Freq PRN Reason Stop Dose Admin Acetaminophen 325 mg 09/03/19 18:28 09/03/19 20:27 Tylenol PO 325 mg Q4H PRN Administration Headache/Fever/Mild Pain (1-3) Hydrocodone Bitart/Acetaminophen 1 tab 09/03/19 18:28 09/06/19 16:38 [place] 5/325 PO 1 tab Q4H PRN Administration Moderate Pain (4-6) Alogliptin Benzoate 6.25 mg 09/05/19 09:00 09/07/19 09:44 Alogliptin PO 6.25 mg DAILY [facility] Administration Amlodipine Besylate 10 mg 09/04/19 09:00 09/07/19 09:45 Norvasc PO 10 mg DAILY [facility] Administration Aspirin 81 mg 09/04/19 09:00 09/07/19 09:45 Ecotrin PO 81 mg DAILY [facility] Administration Calcitriol 0.5 mcg 09/04/19 09:00 09/07/19 09:43 Rocaltrol PO 0.5 mcg DAILY [facility] Administration Carvedilol 6.25 mg 09/04/19 09:00 09/07/19 09:45 Coreg PO 6.25 mg DAILY [facility] Administration Cholecalciferol 5,000 units 09/04/19 09:00 09/07/19 09:43 Vitamin D3 PO 5,000 units DAILY [facility] Administration Clonidine 0.1 mg 09/03/19 18:28 09/06/19 16:38 Catapres PO 0.1 mg Q4H PRN Administration SBP Greater Than 170 Cyclobenzaprine HCl 5 mg 09/04/19 15:00 09/07/19 21:14 Flexeril PO 5 mg TID [facility] Administration Docusate Sodium 100 mg 09/04/19 09:00 09/07/19 09:45 Colace PO 100 mg DAILY [facility] Administration Epoetin Del-epbx 3,000 unit 09/04/19 14:00 09/07/19 18:25 Retacrit IVP 3,000 unit TuTa [facility] Administration Furosemide 20 mg 09/04/19 09:00 09/07/19 09:45 Lasix PO 20 mg DAILY [facility] Administration Heparin Sodium (Porcine) 5,000 units 09/03/19 21:00 09/07/19 21:14 Heparin SC 5,000 units TID [facility] Administration Insulin Glargine 8 units/ 0.08 mls @ 0 mls/hr 09/03/19 21:00 09/07/19 21:33 Miscellaneous Medication SC 0.08 mls HS [facility] Administration Insulin Human Lispro 0 units 09/03/19 18:28 09/04/19 17:53 Humalog SC 2 unit .MODERATE SLIDING SC PRN Administration Moderate Correctional Scale Insulin Human Lispro 0 units 09/03/19 18:28 09/04/19 20:06 Humalog SC 2 unit .BEDTIME SLIDING SC PRN Administration Bedtime Correctional Scale Pantoprazole Sodium 40 mg 09/05/19 09:00 09/07/19 09:46 Protonix PO 40 mg DAILY [facility] Administration Simvastatin 10 mg 09/04/19 21:00 09/07/19 21:15 Zocor PO 10 mg HS [facility] Administration Sodium Chloride 10 ml 09/07/19 09:00 09/07/19 21:15 Flush - Normal Saline IVF 10 ml Q12HR [facility] Administration Tramadol HCl 50 mg 09/03/19 15:54 09/07/19 12:14 Ultram PO 50 mg Q4H PRN Administration Pain 1-5 - Exam Neck: negative: supple, symmetric, no JVD, no thyromegaly, no lymphadenopathy, no carotid bruit, JVD Heart: negative: RRR, no murmur, no gallops, no rubs, normal peripheral pulses, irregular, diminshed peripheral pulses, murmur present, II/IV, III/IV Respiratory: negative: CTAB, no wheezes, no rales, no ronchi, normal chest expansion, no tachypnea, normal percussion, rales, rhonchi, tachypneic, wheezes Gastrointestinal: soft Gastrointestinal - other findings: mild palpation of epigastric area Hosp A/P (1) CKD (chronic kidney disease) stage 5, GFR 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 He is to start dialysis per nephro. He has a TD cath in right chest wall. will get xray of left shoulder. will hold his gemfibrozil due to his worsening creatinine clearance. He has significant eosinophilia, will call his daughter to see if any new meds have been started. He also has elevated wbc. will obtain his previous lab records from [place]. 5 continue dialysis per nephrology. pt continues to have eosinophilia / pt continues to have eosinophilia. Awaiting records. His left should pain is improved. 09/06 will add pepcid to see if this help. spoke with department secretary about records she stated that the pcp office told her they were really busy and not sure if could send records today. spoke with correctional casework specialist about pt's dialysis set up. She is aware and working on it.
[2019-09-08] MEDS ORDERED: Famotidine/PF 20 mg/2ml Vial SLOW IVP SCH (09:00)
--- NOTE | 2019-09-08 09:27 | EKG ---
Test Reason : PREOP Blood Pressure : / mmHG Vent. Rate : 065 BPM Atrial Rate : 065 BPM P-R Int : 178 ms QRS Dur : 094 ms QT Int : 418 ms P-R-T Axes : 073 019 024 degrees QTc Int : 434 ms Normal sinus rhythm Normal ECG No previous ECGs available Confirmed by DR. Diana WERNER ([id number]) on 09/08/2019 9:26:42 AM Referred By: Joseph JARVIS Confirmed By:DR. Diana WERNER
[2019-09-08] MEDS: Aspirin 81 mg Enteric Coated Tablet PO SCH (09:40)
[2019-09-08] MEDS: Cyclobenzaprine 10 MG TAB PO SCH ×2 (09:40→18:35)
[2019-09-08] MEDS: Docusate 100 MG CAP PO SCH (09:41)
[2019-09-08] MEDS: Furosemide 20 MG TAB PO SCH (09:41)
[2019-09-08] MEDS: Alogliptin 6.25 MG TAB PO SCH (09:41)
[2019-09-08] MEDS: Carvedilol 6.25 MG TAB PO SCH (09:41)
[2019-09-08] MEDS: Amlodipine 10 MG TAB PO SCH (09:41)
[2019-09-08] MEDS: Calcitriol 0.25 MCG CAP PO SCH (09:41)
[2019-09-08] MEDS: Heparin 5,000 UNITS/ML VIAL SC SCH ×2 (09:42→18:35)
--- NOTE | 2019-09-08 12:14 | PRG ---
DATE OF SERVICE: 09/08/2019 SUBJECTIVE: An 79-year-old gentleman, being seen for end-stage renal disease. The patient denied nausea, vomiting, or chest pain. OBJECTIVE: General: The patient is awake and alert. Vital Signs: Afebrile, pulse 74, breathing at 16, blood pressure 119/71. HEENT: Head normocephalic and atraumatic. Eyes intact, no ulcers. Nose intact, no ulcers. Ears intact, no ulcers. Neck: Supple. No JVD. Chest: Symmetrical and clear. Cardiovascular: Shows S1 and S2, no rub, no murmur. Gastrointestinal: Abdomen is soft, bowel sounds positive. Extremities: Show no edema or ulcers. Skin: Shows no rash or petechiae. Musculoskeletal: Shows no joint swelling or stiffness. Genitourinary: Shows no Crum or CVA tenderness. Neurologic: Motor intact. Cranial nerves intact. LABORATORY DATA: Hemoglobin 8.3. ASSESSMENT AND PLAN: 1. Stage 6 chronic kidney disease. Continue hemodialysis. 2. Hypertension, stable. 3. Anemia, stable. 4. Medication based on GFR appropriate. Job ID: [id number]
--- NOTE | 2019-09-08 13:58 | CT ---
CT abdomen and pelvis noncontrast HISTORY: Flank pain. FINDINGS: No comparison. Each renal collecting system, ureter, and urinary bladder are decompressed w ithout stone evident. Lack of contrast limits evaluation for other abnormalities. Reportedly renal insufficiency precludes IV contrast administration. Calcified granuloma at the liver dome is consistent with healed granulomatous disease. At the inferior aspect of the right liver lobe, there is extensive motion artifact. An oval area of d ystrophic calcification is estimated at 1.9 cm greatest diameter. Incompletely evaluated on this exam. Favored to be a benign process. Possibly a granuloma or hemangioma. Calcified liver metastases are unusual. Mild atelectasis at the left posterior lung base. Cyst at the inferior pole of the left kidney is 2.6 cm greatest diameter. Diffuse atrophy of each kidney. Diverticula arise from the colon without adjacent inflammation. There is calcification throughout the arterial structures. Bilateral pars interarticularis defects at the L4-5 level with 0.3 cm spondylolisthesis. Degenerative changes of the lumbar spine. IMPRESSION : No CT evidence of urinary tract obstruction or calcification. Renal insufficiency precludes IV contra st administration. Indeterminate, likely benign dystrophic calcification within the inferior margin of the right liver l obe. In the absence of known bone cancer or colon cancer, further evaluation is likely not needed. Atherosclerosis. Diverticulosis. No evidence of diverticulitis. 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
[2019-09-08 18:38] VITALS: BP 131/67; TEMP 97.8
--- NOTE | 2019-09-10 02:30 | DIS ---
DATE OF ADMISSION: 09/03/2019 DATE OF DISCHARGE: 09/08/2019 DISCHARGE DIAGNOSES: As of the following. 1. End-stage renal disease, new onset dialysis. 2. Eosinophilia. 3. Diabetes. 4. Hypertension. HOSPITAL COURSE: Patient is an 79-year-old male, who initially presented to the hospital to starting of dialysis. He underwent a tunneled catheter placement and was started on dialysis per [facility]phrology [facility]. Patient recently had moved from [place]. I spoke with the patient's daughter, Nighat, and updated her throughout the hospital stay. The patient was noted to have eosinophils of 38, ranging from 29 to 42%. I did try to get records from his PCP, Dr. Calvillo's office, however, that did not take place. The reason I was told was the office was very busy. I did relate this information to the patient's daughter, Nighat, in detail that he will need to follow up with this. I have reviewed his medications. He is on Protonix, which I have discontinued. Also, I have discontinued the sodium bicarb and also the Lasix. No recent medications were started. He has no history of asthma or allergies. I did do an abdomen and pelvis CAT scan with oral contrast, which did not show anything specific. It just indicated some benign dystrophic calcification within the inferior margin of the right liver lobe and I updated this to the patient's daughter. He will follow up with his primary and also his dialysis has been set up through [facility]. His home medications on discharge will be as of the following. 1. Insulin 10 units daily. 2. I did discontinue his gemfibrozil since that is contraindicated in dialysis and also recommended the patient to follow up with his PCP to get a level of his triglycerides and this was relayed to the to the daughter. 3. Pravastatin 20 mg at bedtime. 4. Januvia 25 mg daily. 5. Carvedilol 6.25 daily. 6. Calcitriol 0.5 daily. 7. Aspirin 81 mg daily. 8. Norvasc 10 mg daily. The medications I discontinued were sodium bicarb, Lasix, gemfibrozil, and Protonix. Patient's daughter stated that he has no history of GERD or any ulcers in the past. PHYSICAL EXAMINATION: VITAL SIGNS: On discharge were 98.0, 74, 20, 95% on room air, and 131/67. GENERAL: He is awake, alert, and oriented x3. Does not appear in distress. CV: S1, S2 present. No murmurs, rubs, or gallops. Job ID: [id number]
== END 2019-09-08 19:00 | disposition home or self-care (01) | DRG 673 ==
LOC: SDC 10:11 → T4-A 12:21
PROVIDERS: ADMIT Specialist; ATTEND Specialist
PROC: 031C0ZF Bypass Left Radial Artery to Lower Arm Vein, Open Approach (ICD-10-PCS; 2019-09-03)
PROC: 0JH63XZ Insertion of Tunneled Vascular Access Device into Chest Subcutaneous Tissue and Fascia, Percutaneous Approach (ICD-10-PCS; 2019-09-03)
PROC: 02HV33Z Insertion of Infusion Device into Superior Vena Cava, Percutaneous Approach (ICD-10-PCS; 2019-09-03)
PROC: B518ZZA Fluoroscopy of Superior Vena Cava, Guidance (ICD-10-PCS; 2019-09-03)
PROC: 02HV33Z Insertion of Infusion Device into Superior Vena Cava, Percutaneous Approach (ICD-10-PCS; 2019-09-03)
PROC: B548ZZA Ultrasonography of Superior Vena Cava, Guidance (ICD-10-PCS; 2019-09-03)
PROC: 8E0ZXY6 Isolation (ICD-10-PCS; 2019-09-03)
PROC: 5A1D70Z Performance of Urinary Filtration, Intermittent, Less than 6 Hours Per Day (ICD-10-PCS; principal; 2019-09-06)
DX: I12.0 Hypertensive chronic kidney disease with stage 5 chronic kidney disease or end stage renal disease (principal); N18.6 End stage renal disease; E11.22 Type 2 diabetes mellitus with diabetic chronic kidney disease; E78.00 Pure hypercholesterolemia, unspecified; D63.1 Anemia in chronic kidney disease; D72.1 Eosinophilia; Z79.899 Other long term (current) drug therapy; Z79.4 Long term (current) use of insulin; Z79.82 Long term (current) use of aspirin; Z86.73 Personal history of transient ischemic attack (TIA), and cerebral infarction without residual deficits; Z11.59 Encounter for screening for other viral diseases
CPT/HCPCS: 36415; 36416; 71045; 74176; 80048; 80053; 85025; 85060; 86580; 86704; 86705; 86706; 86803; 87340; 87635; 90935; 93005; 93010; C1752; C1769; G0257; J0690; J1644; J1815; J2720; J3010; Q5105; S0020; S0028; U0003

== ENCOUNTER 2019-09-13 20:35 | Observation (INO) | payer MEDICARE ==
[2019-09-13] MEDS ORDERED: Dextrose 5% in Water 1,000 ML IV PRN (23:33)
[2019-09-13] MEDS ORDERED: Ondansetron ODT 4 MG TAB PO PRN (23:33)
[2019-09-13] MEDS ORDERED: Acetaminophen 325 MG TAB PO PRN (23:33)
[2019-09-13] MEDS ORDERED: Dextrose 50% Abboject 50 ML SYRINGE SLOW IVP PRN (23:33)
[2019-09-13] MEDS ORDERED: Insulin Regular 300 UNITS/3 ML VIAL SC PRN ×2 (23:33)
[2019-09-13] MEDS ORDERED: Ondansetron PF 4 MG/2 ML Vial IVP PRN (23:33)
[2019-09-13] MEDS ORDERED: Acetaminophen 650 MG Suppository PR PRN (23:33)
[2019-09-13] MEDS ORDERED: Labetalol HCl 100 MG/20 ML VIAL SLOW IVP PRN (23:36)
--- NOTE | 2019-09-14 00:05 | PDOC.HHP ---
Hospitalist HPI - History of Present Illness Dialysis catheter problem History of Present Illness: Patient is Indian speaking only, accompanied by his daughter. Patient denies any complaints and apparently recently started on dialysis. He thought his dialysis was complete and due to irritation from the catheter on the right side of his chest, he decided to cut it shorter. When he presented for dialysis today, he was unable to have it done and referred to the ED. He has felt well in himself and denies having any complaints. He has not had any dinner and is concerned over missing his night time medications. Right IJ dialysis catheter by Dr. Mott on 09/03/2019. Hospitalist ROS - Review of Systems Constitutional: denies: fever, chills, sweats, weakness, malaise, other Eyes: denies: pain, vision change, conjunctivae inflammation, eyelid inflammation, redness, other ENT: denies: ear pain, ear discharge, nose pain, nose discharge, nose congestion , mouth pain, mouth swelling, throat pain, throat swelling, other Respiratory: denies: cough, dry, shortness of breath, hemoptysis, SOB with excertion, pleuritic pain, sputum, wheezing, other Cardiovascular: denies: chest pain, palpitations, orthopnea, paroxysmal noc. dyspnea, edema, light headedness, other Gastrointestinal: denies: nausea, vomiting, abdominal pain, diarrhea, constipation, melena, hematochezia, other Genitourinary: denies: dysuria, frequency, incontinence, hematuria, retention, other Musculoskeletal: denies: neck pain, shoulder pain, arm pain, back pain, hand pain, leg pain, foot pain, other Skin: reports: other (slight irritation at catheter site where it was touching his skin. No erythema, discharge or pain, no swelling or bleeding.). denies: rash, lesions, sandra, bruising Neurological: denies: weakness, numbness, incoordination, change in speech, confusion, seizures, other - Medication Medications: ALLERGIES: NKDA HOME MEDICATIONS: Tylenol FriSeptember 13, 2019 22:45 SHAKIRA Martini Susannah tablet : Strength - 325 mg : ORAL Patient Dose: 1 tab(s) Oral every 4 hours prn. pravastatin FriSeptember 13, 2019 22:45 SHAKIRA Martini Susannah tablet : Strength - 20 mg : ORAL Patient Dose: 1 tab(s) Oral once a day (at bedtime). gemfibrozil FriSeptember 13, 2019 22:47 SHAKIRA Martini Susannah tablet : Strength - 600 mg : ORAL Patient Dose: 1 tab(s) Oral 2 times a day. carvedilol FriSeptember 13, 2019 22:47 SHAKIRA Martini Susannah tablet : Strength - 6.25 mg : ORAL Patient Dose: 1 tab(s) Oral once a day. calcitriol oral FriSeptember 13, 2019 22:48 SHAKIRA Martini Susannah capsule : Strength - 0.5 mcg : ORAL Patient Dose: 1 tab(s) Oral once a day. aspirin oral FriSeptember 13, 2019 22:48 SHAKIRA Martini Susannah tablet : Strength - 81 mg : ORAL Patient Dose: 1 tab(s) Oral once a day. amLODIPine FriSeptember 13, 2019 22:49 SHAKIRA Martini Susannah tablet : Strength - 10 mg : ORAL Patient Dose: 1 tab(s) Oral once a day. Tresiba FlexTouch U-200 FriSeptember 13, 2019 22:50 SHAKIRA Martini Susannah insulin pen : Strength - 200 unit/mL (3 mL) : [3 mL(s)] : SUBCUTANEOUS Patient Dose: unk. Januvia FriSeptember 13, 2019 22:51 SHAKIRA Martini Susannah tablet : Strength - 25 mg : ORAL Patient Dose: 1 tab(s) Oral once a day. docusate sodium FriSeptember 13, 2019 22:51 SHAKIRA Martini Susannah capsule : Strength - 100 mg : ORAL Patient Dose: 1 tab(s) Oral once a day. cholecalciferol (vitamin D3) oral FriSeptember 13, 2019 22:51 SHAKIRA Martini Susannah capsule : Strength - 5,000 unit : ORAL Patient Dose: 1 tab(s) Oral once a day. Levemir Flexpen FriSeptember 13, 2019 22:52 SHAKIRA Martini Susannah insulin pen : Strength - 100 unit/mL (3 mL) : SUBCUTANEOUS Patient Dose: 10 units Subcutaneous once a day. Hospitalist History - Past Medical History Source: patient Cardiac: reports: HTN Psych: reports: Other (Dementia) Renal/: reports: Other (ESRD on dialysis) Endocrine: reports: Diabetes - Past Surgical History Past Surgical History: reports: Other Other Surgical History: Right IJ dialysis catheter by Dr. Mott on 09/03/2019. - Family History Family History: reports: no pertinent history - Social History Smoking Status: Never smoker Alcohol: reports: None Drugs: reports: none Living Situation: With Family Activity level: independent ambulation - Exam General Appearance: NAD, awake alert Eye: PERRL, anicteric sclera ENT: normocephalic atraumatic, no oropharyngeal lesions Neck: supple, no lymphadenopathy Heart: RRR, no murmur, no gallops Respiratory: CTAB, no wheezes, no rales, no ronchi, normal chest expansion Respiratory - other findings: HD catheter to Rt chest, minimal eyrthema, no discharge/swelling Gastrointestinal: soft, non-tender, non-distended, no guarding, no rigidity Extremities - other findings: trace edema, bilaterally Skin: normal turgor, no lesions, no rashes Neurological: cranial nerve grossly intact Musculoskeletal: normal tone, normal strength, no muscle wasting Psychiatric: normal affect, normal behavior, A&O x 3 Hospitalist H&P A/P - Problem (1) Complications, dialysis, catheter, mechanical Code(s): T82.49XA - OTH COMPLICATION OF VASCULAR DIALYSIS CATHETER, INIT ENCNTR Status: Acute (2) ESRD on dialysis Code(s): N18.6 - END STAGE RENAL DISEASE; Z99.2 - DEPENDENCE ON RENAL DIALYSIS Status: Acute (3) Diabetes Code(s): E11.9 - TYPE 2 DIABETES MELLITUS WITHOUT COMPLICATIONS Status: Chronic (4) HTN (hypertension) Code(s): I10 - ESSENTIAL (PRIMARY) HYPERTENSION Status: Chronic - Plan Plan: Consult placed for Nephrology for dialysis, patient missed dialysis today. Consult placed to Dr. Mtot for catheter problem. Monitor renal function. Monitor BP, resume home medications once verified. Monitor glucose. ISS initiated. DVT Prophylaxis with mechanical SCDs. GI Prophylaxis with Famotidine. CODE STATUS: FULL Surrogate decision maker is his daughter, Brenda Aviles [phone]
[2019-09-14 00:36] VITALS: BMI 35.1
--- NOTE | 2019-09-14 05:38 | PDOC.EVN ---
Event Note - Event Note Event Note: Patient seen and examined for dialysis catheter malfunction. No SOB/CP. Vitals reviewed. Lungs CTA b/l, S1S2 +. Labs reviewed. Selected home meds started. I agree with the note, A & P per PA. NPO. Sliding scale.
[2019-09-14 05:57] LABS: Anion Gap 14 mmol/L (10-20); BUN (Urea Nitrogen) 28 mg/dL (8.4-25.7); Calc. Creatinine Clearance 18 mL/min (70-130); Calcium 9.2 mg/dL (7.8-10.44); Carbon Dioxide 24 mmol/L (23-31); Chloride 105 mmol/L (98-107); Estimated GFR-MDRD 15; Glucose 108 mg/dL (83-110); Potassium 4.1 mmol/L (3.5-5.1); Sodium 139 mmol/L (136-145)
[2019-09-14 06:39] LABS: Hemoglobin 8.6 g/dL (14.0-18.0); Mean Corpuscular Hemoglobin 32.6 pg (27.0-31.0); Mean Corpuscular Volume 98.8 fL (78.0-98.0); Mean Platelet Volume 7.6 fL (7.4-10.4); Platelet Count 264 thou/uL (130-400); RBC Distribution Width 13.6 % (11.5-14.5); Red Blood Cell (RBC) Count 2.63 mill/uL (4.70-6.10)
[2019-09-14 07:06] LABS: Band 2 % (5-11); Eosinophils 34 % (0-10); Lymphocytes 10 % (21-51); MDiff Complete? YES; Monocytes 6 % (0-10); Neutrophil 48 % (42-75)
[2019-09-14] MEDS: Amlodipine 5 MG TAB PO SCH ×2 (09:02→20:03)
[2019-09-14] MEDS: Famotidine 20 MG TAB PO SCH (09:02)
[2019-09-14] MEDS: Carvedilol 6.25 MG TAB PO SCH ×2 (09:02→17:21)
[2019-09-14] MEDS: Aspirin 81 mg Enteric Coated Tablet PO SCH (09:02)
[2019-09-14] MEDS ORDERED: PHENYLEPHRINE-NS 100 MCG/ML 10 ML SYRINGE ONE (11:17)
[2019-09-14] MEDS ORDERED: PROPOFOL 200 MG/20 ML VIAL ONE (11:17)
[2019-09-14] MEDS ORDERED: Lidocaine 1% PF 5 ML VIAL ONE (11:17)
[2019-09-14] MEDS ORDERED: Fentanyl 100 MCG/2 ML VIAL ONE (11:49)
[2019-09-14] MEDS ORDERED: Heparin 10,000 UNITS/1 ML VIAL ONE (12:28)
[2019-09-14] MEDS ORDERED: Bupivacaine 0.25% HCL 30 ML VIAL ONE (12:28)
[2019-09-14] MEDS ORDERED: Lidocaine 1% w/Epinephrine 1:100K 20 ML VIAL ONE (12:28)
[2019-09-14] MEDS ORDERED: Sodium Chloride 0.9% 30 ML ONE (12:28)
[2019-09-14] MEDS ORDERED: Ondansetron HCl/PF 4 MG/2 ML Vial IVP PRN (13:40)
[2019-09-14] MEDS ORDERED: Promethazine HCl 25 MG/ML VIAL SLOW IVP PRN (13:40)
[2019-09-14] MEDS ORDERED: Promethazine HCl 25 MG/ML VIAL IM PRN (13:40)
--- NOTE | 2019-09-14 14:06 | RAD ---
Exam: Chest one view HISTORY:Status post hemodialysis catheter placement. Comparison: 09/03/2019 FINDINGS: Lines and tubes: Interval removal of left-sided internal jugular central venous catheter. Redemonstra tion of a right-sided HemoSplit dialysis catheter terminating over the region of the superior vena cava Cardiac silhouette: Normal Aorta: Unremarkable Pulmonary vessels: Normal Costophrenic angles: Small left-sided pleural effusion. LUNGS: No masses or consolidation. Pneumothorax: None Osseous abnormalities: None IMPRESSION: 1. Right-sided HemoSplit dialysis catheter as above. 2. Small left-sided pleural effusion.
--- NOTE | 2019-09-14 15:20 | PDOC.HOSPP ---
- Subjective Encounter Date: 09/14/19 Encounter Time: 09:00 Subjective: pt up in bed no complains of pain. - Objective Vital Signs & Weight: Vital Signs (12 hours) Temp Pulse Resp BP BP Pulse Ox 09/14/19 09:02 81 135/75 09/14/19 07:38 98.1 F 81 18 135/75 97 Weight Weight 186 lb I&O: 09/13/19 09/14/19 09/15/19 06:59 06:59 06:59 Intake Total 310 Balance 310 Result Diagrams: 09/14/19 05:22 09/14/19 05:22 Additional Labs: Accuchecks 09/14/19 05:42 POC Glucose 117 H Hospitalist ROS - Review of Systems Respiratory: denies: cough, dry, shortness of breath, hemoptysis, SOB with excertion, pleuritic pain, sputum, wheezing, other Cardiovascular: denies: chest pain, palpitations, orthopnea, paroxysmal noc. dyspnea, edema, light headedness, other Gastrointestinal: denies: nausea, vomiting, abdominal pain, diarrhea, constipation, melena, hematochezia, other - Medication Medications: Active Medications Generic Name Dose Route Start Last Admin Trade Name Freq PRN Reason Stop Dose Admin Amlodipine Besylate 5 mg 09/14/19 09:00 09/14/19 09:02 Norvasc PO 5 mg BID LANRE Administration Aspirin 81 mg 09/14/19 09:00 09/14/19 09:02 Ecotrin PO 81 mg DAILY LANRE Administration Carvedilol 6.25 mg 09/14/19 08:00 09/14/19 09:02 Coreg PO 6.25 mg BID-WM LANRE Administration Famotidine 20 mg 09/14/19 09:00 09/14/19 09:02 Pepcid PO 20 mg DAILY LANRE Administration - Exam ENT: negative: normocephalic atraumatic, no oropharyngeal lesions, moist mucosa , dry oral mucosa Neck: negative: supple, symmetric, no JVD, no thyromegaly, no lymphadenopathy, no carotid bruit, JVD Heart: negative: RRR, no murmur, no gallops, no rubs, normal peripheral pulses, irregular, diminshed peripheral pulses, murmur present, II/IV, III/IV Respiratory: negative: CTAB, no wheezes, no rales, no ronchi, normal chest expansion, no tachypnea, normal percussion, rales, rhonchi, tachypneic, wheezes Extremities: 1+ LE edema Hosp A/P (1) Complications, dialysis, catheter, mechanical Code(s): T82.49XA - OTH COMPLICATION OF VASCULAR DIALYSIS CATHETER, INIT ENCNTR Status: Acute (2) ESRD on dialysis Code(s): N18.6 - END STAGE RENAL DISEASE; Z99.2 - DEPENDENCE ON RENAL DIALYSIS Status: Acute (3) Diabetes Code(s): E11.9 - TYPE 2 DIABETES MELLITUS WITHOUT COMPLICATIONS Status: Chronic (4) HTN (hypertension) Code(s): I10 - ESSENTIAL (PRIMARY) HYPERTENSION Status: Chronic - Plan pt's dialysis cath was cut not sure if the pt did it or family. Pt is oriented x3 but has low cognitive ability. He gets confused at times. spoke with daughter Brenda about snf placement for closer monitoring but she does not want the pt to go to snf. I did talk to her in details about the risk of bleeding and air embolism she understands but does not want to keep the pt here and want to take him home. spoke with surgery who is concern about him cutting his dialysis cath and i agree. spoke with caser up who will get APS. Referral number [id number].
--- NOTE | 2019-09-14 18:59 | CON ---
DATE OF CONSULTATION: HISTORY OF PRESENT ILLNESS: Mr. Garrett is an 79-year-old man, previously seen by my partner, Dr. Mott. He placed a tunneled dialysis catheter and a left upper arm AV fistula for him earlier this month and the patient went home and was doing outpatient dialysis, but apparently came back into the emergency room after having been discovered to have the end of his catheter cut off. The patient himself has been pleasantly confused and states that he has no idea what happened or how it happened. He denies cutting the ends of the catheter off himself and does not know when it was cut. Apparently, he did undergo dialysis on Friday, so it was functioning at that time and there is no report of significant bleeding at home before he was brought into the emergency room. He is not short of breath and his labs look okay. The patient apparently lives at home with family. He was admitted to the hospital and I was consulted to replace the dialysis catheter as this fistula has not yet matured. PAST MEDICAL HISTORY: Past medical history and other details are through chart review as the patient is not a reliable historian. He has a history of chronic renal failure, which proceeded to end-stage renal failure earlier this month and has been on dialysis since September 02. He also has high blood pressure, diabetes, and hyperlipidemia. MEDICATION LIST: Home medication list is extensive. He is on aspirin but no other blood thinners. Other medications include; 1. Pravastatin. 2. Gemfibrozil. 3. Carvedilol. 4. Calcitriol. 5. Amlodipine. 6. . 7. Januvia. 8. Docusate. 9. Vitamin D. 10. Levemir FlexPen. 11. Tylenol. PAST SURGICAL HISTORY: Right internal jugular tunneled dialysis catheter placements and left upper arm AV fistula by Dr. Mott on 09/03/2019. He denies any other surgeries and none are noted in the chart. FAMILY HISTORY: Noncontributory by chart review. ALLERGIES: NO KNOWN DRUG ALLERGIES. SOCIAL HISTORY: He does not smoke or drink. His daughter is his medical power of associate attorney. REVIEW OF SYSTEMS: Ten system review of systems is negative per the patient. PHYSICAL EXAMINATION: VITAL SIGNS: Normal. He is 97% saturated on room air. HEENT: Unremarkable. NECK: Supple without lymphadenopathy or thyroid nodules. HEART: Regular in its rate and rhythm. He does have a soft systolic murmur heard best at the left upper sternal border. LUNGS: Clear to auscultation bilaterally with good air movement. ABDOMEN: Obese, soft, nontender, nondistended with no palpable masses or hernias. EXTREMITIES: Warm and well perfused. He has moderate left arm edema likely due to his fistula. He does have a palpable thrill in the upper arm, but the fistula is not arterialized or dilated yet. His incision is healing well. NEUROLOGIC: No focal deficits. PSYCHIATRIC: Alert and cooperative, but easily distracted and has tried to wander off from day stay because he forgets why he is supposed to be here. LABORATORY DATA: Bicarb and potassium are normal. His hematocrit is 8.6, which is consistent with past values. Platelets are 264. ASSESSMENT: Damaged hemodialysis catheter with end-stage renal failure requiring ongoing dialysis. His fistula is not yet matured and he will require replacement of his dialysis catheter. This should be able to be changed over a wire. It has been clamped to prevent bleeding or air embolism. I am concerned about the patient's home safety. He is clearly demented and not able to care for himself. Lives with family. He states he does not know how the dialysis catheter was cut. I suspect that he did this himself and forgot about it or is worried to admit it, but he still in my opinion should have a home safety check by Adult Protective Services. I have asked the primary care provider to get a case management consult to file a report as this could easily have been a life-threatening incident. The patient is at increased risk for infection of his dialysis catheter and will need to be monitored for this due to the damage to the catheter. I have ordered antibiotics on-call to the OR. I do not think that long-term antibiotics are necessary. All the patient's questions were answered. His daughter has given consent for the procedure by telephone. Job ID: [id number] MTDD
[2019-09-14] MEDS ORDERED: Atorvastatin Calcium 10 MG TAB PO SCH (21:00)
[2019-09-14] MEDS ORDERED: Pravastatin Sodium 40 MG TAB PO SCH (21:00)
--- NOTE | 2019-09-15 02:15 | OP ---
DATE OF PROCEDURE: 09/14/2019 PROCEDURE PERFORMED: Replacement of right internal jugular tunneled hemodialysis catheter. PREOPERATIVE DIAGNOSIS: Damaged dialysis catheter. POSTOPERATIVE DIAGNOSIS: Damaged dialysis catheter. HISTORY: Mr. Garrett is an 79-year-old man, who presented to the hospital with a damaged dialysis catheter. The ends of the dialysis catheter had been cut off flush with the hub. The patient could not explain how this happened or who did it, but has been confused during this hospitalization and is not a reliable historian. Recommendation was made to proceed with replacement of the dialysis catheter as his left upper arm AV fistula is not mature. The patient's family was in agreement with this plan. DESCRIPTION OF PROCEDURE: After informed consent was obtained and appropriate preoperative antibiotics were administered, the patient was taken to the operating room, where he was placed in a supine position and anesthesia was administered. He was prepped and draped in a standard sterile fashion and local anesthesia infused to the skin and subcutaneous tissues at the right IJ access site. Next, the previous skin incision was opened and the catheter identified, brought up into the wound, clamped and divided between clamps. A wire was placed through the portion of the catheter in the internal jugular vein and the distal part of the catheter was removed leaving the wire in place. The dilator and sheath were placed over the wire, and the wire and dilator removed leaving the sheath in place. A new dialysis catheter was obtained. Local anesthesia was infused through skin and subcutaneous tissues of the right neck and chest, and the catheter tunneled from an infraclavicular incision to the right IJ access site. The catheter was placed through the sheath, which was split and removed leaving the catheter in place. The catheter was confirmed by fluoroscopy to be in good position and both ports easily aspirated and easily flushed. The skin incision of the neck was closed in two layers with 4-0 Monocryl suture and Dermabond dressing placed. The skin at the exit site on the right chest was snugged up against the catheter with 4-0 Monocryl suture as well and Dermabond placed there. The hub was secured to the skin with nylon sutures and heparin instilled to the quantity specified on the catheter. The old site was then addressed. The cuff was dissected free of the subcutaneous tissues and the catheter removed and a sterile gauze dressing placed. The new catheter site was dressed with chlorhexidine infused dressing. The patient was taken to Recovery in good condition. Estimated blood loss was minimal. There were no complication. There were no specimens. Job ID: [id number] MTDD
--- NOTE | 2019-09-15 05:38 | CON ---
DATE OF CONSULTATION: 09/14/2019 CONSULTING PHYSICIAN: Rosy Fregoso MD REASON FOR CONSULTATION: End-stage renal disease evaluation and care. REASON FOR ADMISSION: Malfunctioning dialysis catheter. HISTORY OF PRESENT ILLNESS: This is an 79-year-old male with history of end-stage renal disease, hypertension, type 2 diabetes, and hyperlipidemia, came to the hospital with above complaints. The patient recently started on dialysis and showed up to dialysis today and was found to have his catheter limbs cut off and the patient reported today it was irritating him and he cut it short. The patient denies any bleeding, any other complaints. No chest pain or palpitation. The patient was counseled as stated. PAST MEDICAL HISTORY: Positive for hypertension, end-stage renal disease, and diabetes. PAST SURGICAL HISTORY: Dialysis catheter placement. HOME MEDICATIONS: Reviewed. ALLERGIES: NO KNOWN DRUG ALLERGIES. SOCIAL HISTORY: No smoking alcohol or drugs. FAMILY HISTORY: No history of kidney disease. REVIEW OF SYSTEMS: CONSTITUTIONAL: Negative for weight loss or gain, ability to conduct usual activities. SKIN: Negative for rash, itching. EYES: Negative for double vision, pain. ENT/MOUTH: Negative for nose bleeding, neck stiffness, pain, tenderness. CARDIOVASCULAR: Negative for palpitations, dyspnea on exertion, orthopnea. RESPIRATORY: Negative for shortness of breath, wheezing, cough, hemoptysis, fever or night sweats. GASTROINTESTINAL: Negative for poor appetite, abdominal pain, heartburn, nausea, vomiting, constipation, or diarrhea. GENITOURINARY: Negative for urgency, frequency, dysuria, nocturia. MUSCULOSKELETAL: Negative for pain, swelling. NEUROLOGIC/PSYCHIATRIC: Negative for anxiety, depression. ALLERGY/IMMUNOLOGIC: Negative for skin rash, bleeding tendency. PHYSICAL EXAMINATION: GENERAL: This is an elderly male, in no apparent distress. VITAL SIGNS: Temperature 98.1, pulse 81, respirations 18, blood pressure 135/75. HEENT: Atraumatic and normocephalic. Oral mucosa moist. NECK: Supple. CV: S1, S2 RESPIRATORY: Clear. GI: Abdomen soft. MUSCULOSKELETAL: 1+ edema. DERMATOLOGIC: No skin rash. NEUROLOGICAL: Alert and awake. PSYCHIATRIC: Mood and affect are normal. LABORATORY DATA: Hemoglobin is 8.6. Potassium is 4.1, BUN is 28, and creatinine is 3.9. ASSESSMENT AND PLAN: 1. End-stage renal disease .. 2. Hypertension. 3. Chronic anemia. 4. Continue dialysis as tolerated. Surgery consulted. When new access is placed, will have dialysis. Job ID: [id number]
[2019-09-15 08:04] VITALS: TEMP 98.4
[2019-09-15] MEDS: Aspirin 81 mg Enteric Coated Tablet PO SCH (08:51)
[2019-09-15] MEDS: Carvedilol 6.25 MG TAB PO SCH (08:51)
[2019-09-15] MEDS: Famotidine 20 MG TAB PO SCH (08:51)
[2019-09-15] MEDS: Amlodipine 5 MG TAB PO SCH (08:51)
[2019-09-15 08:52] VITALS: BP 135/75
--- NOTE | 2019-09-15 13:19 | PRG ---
DATE OF SERVICE: 09/15/2019 SUBJECTIVE: Patient was seen and examined at bedside and overnight events noted. Patient denies any shortness of breath or chest pain or palpitation. No history of nausea or vomiting or diarrhea or fever or chills or cramps. OBJECTIVE: General: This is a well-built male, in no apparent distress. Vital Signs: Temperature 98.4. Heart Rate 83. Respiratory rate . Blood pressure 135/75. HEENT: Atraumatic, normocephalic. Oral mucosa is moist. Neck: Supple. Cardiovascular: S1, S2 heard. Rate and rhythm regular. Respiratory: Clear to auscultation. Gastrointestinal: Abdomen is soft. Musculoskeletal: No tenderness. No edema. Dermatologic: No skin rash. Neurologic: Alert and awake and oriented x3. No focal neurologic deficits. Moving all the extremities. Psychiatric: Mood and affect normal. LABORATORY DATA: No labs done today. ASSESSMENT AND PLAN: 1. End-stage renal disease. Continue dialysis. 2. Edema. 3. Chronic anemia. 4. Continue dialysis as tolerated. Job ID: [id number]
--- NOTE | 2019-09-16 05:06 | DIS ---
DATE OF ADMISSION: 09/13/2019 DATE OF DISCHARGE: 09/15/2019 DISCHARGE DIAGNOSES: 1. Complication of tunneled catheter, the patient actually cut the tunneled catheter. 2. End-stage renal disease, on dialysis. 3. Hypertension. 4. Elevated eosinophils. HOSPITAL COURSE: The patient is an 79-year-old male, who initially presented to the hospital after being sent from his [facility] for cutting his catheter due to irritation. We did speak with the patient's family, that is the patient's daughter, Arley, and educated her that this was a life-threatening complication from cutting the catheter, would be air embolism and bleeding. She stated that she understands and she is unclear about how the patient got a hold of the scissors. It is unclear if it was the patient who cut it or the family member. At this time, APS was contacted by social work administrator. I did speak with Arley for possible placement of this patient to a [facility] for closer monitoring; however, she wanted to take the patient home with her and stated that she would keep a very close eye on him. The patient tolerated dialysis well. His catheter was replaced and he will be discharged home today. The patient will follow up with Primary and also will get dialysis done today. HOME MEDICATIONS: 1. Calcitriol 0.5 daily. 2. Aspirin 81 mg daily. 3. Amlodipine 10 mg daily. 4. Carvedilol 6.25 daily. 5. Pravastatin 20 mg at bedtime. 6. Insulin 10 units daily. 7. Januvia 25 mg daily. 8. His gemfibrozil was discontinued. The patient has an appointment to see his primary care doctor tomorrow. The patient may require checking his triglycerides and his cholesterol since I have stopped his gemfibrozil since that is contraindication for end-stage renal disease, on dialysis. Also, I have asked Arley to follow up with the eosinophilia that has been persistent. PHYSICAL EXAMINATION: VITAL SIGNS: Temperature 98.4, pulse 83, oxygen saturation 90% on room air, blood pressure 141/73. GENERAL: He is awake, alert, and oriented x3. Does not appear in distress. CV: S1 and S2 present. No murmurs, rubs, or gallops. ABDOMEN: Soft and nontender. Bowel sounds are present x2. Again, he will be discharged home. He will follow up with his Primary and will undergo dialysis. Job ID: [id number]
--- NOTE | 2019-09-18 15:19 | EKG ---
Test Reason : EMERGENCY Blood Pressure : / mmHG Vent. Rate : 079 BPM Atrial Rate : 079 BPM P-R Int : 172 ms QRS Dur : 094 ms QT Int : 380 ms P-R-T Axes : 091 006 009 degrees QTc Int : 435 ms Normal sinus rhythm Normal ECG Confirmed by JOSE TONEY DO ([id number]), industrial editor IRIS LORENZO ([id number] on 09/18/2019 3:19:09 PM Referred By: Confirmed By:JOSE TONEY DO
== END 2019-09-15 10:40 | disposition home or self-care (01) ==
LOC: ERS 20:35 → SURG B 21:57
PROVIDERS: ADMIT Internal Medicine; ATTEND Internal Medicine
PROC: 0J2SXYZ Change Other Device in Head and Neck Subcutaneous Tissue and Fascia, External Approach (ICD-10-PCS; principal; 2019-09-14)
DX: T82.49XA Other complication of vascular dialysis catheter, initial encounter (principal); I12.0 Hypertensive chronic kidney disease with stage 5 chronic kidney disease or end stage renal disease; E11.22 Type 2 diabetes mellitus with diabetic chronic kidney disease; N18.6 End stage renal disease; D63.1 Anemia in chronic kidney disease; F03.90 Unspecified dementia, unspecified severity, without behavioral disturbance, psychotic disturbance, mood disturbance, and anxiety; E78.5 Hyperlipidemia, unspecified; D72.1 Eosinophilia; Z79.4 Long term (current) use of insulin; Z79.82 Long term (current) use of aspirin; Z79.899 Other long term (current) drug therapy; Z99.2 Dependence on renal dialysis
CPT/HCPCS: 36581; 71045; 80048; 82962 ×2; 83735; 85025; 93005; 97139 ×6; 99284; C1752; C1769; G0378 ×3; 36415; 36416; 90935; G0257; J0690; J1644; J2001; J2704; J3010; S0020

== ENCOUNTER 2019-12-23 16:15 | Inpatient (IN) | payer MEDICARE ==
[2020-01-04] MEDS ORDERED: EPHEDRINE 25 MG/5 ML SYRINGE ONE (09:51)
[2020-01-04] MEDS ORDERED: Rocuronium Bromide 10 MG/ML (10ML VIAL) ONE (09:51)
[2020-01-04] MEDS ORDERED: PROPOFOL 200 MG/20 ML VIAL ONE (09:51)
[2020-01-04] MEDS ORDERED: Ondansetron PF 4 MG/2 ML Vial ONE (09:51)
[2020-01-04] MEDS ORDERED: Lidocaine 1% PF 5 ML VIAL ONE (09:51)
[2020-01-04] MEDS ORDERED: Dexamethasone 20 MG/5 ML VIAL ONE (09:51)
[2020-01-04] MEDS ORDERED: PHENYLEPHRINE-NS 100 MCG/ML 10 ML SYRINGE ONE ×2 (09:51→15:14)
[2020-01-04] MEDS ORDERED: Protamine Sulfate 50 MG/5 ML VIAL ONE (11:51)
[2020-01-04] MEDS ORDERED: Heparin 5,000 UNITS/ML VIAL ONE (11:51)
[2020-01-04] MEDS ORDERED: Fentanyl 100 MCG/2 ML VIAL ONE (11:56)
[2020-01-04] MEDS ORDERED: Nitroglycerin 50 MG/250 ML BOT 250 ML ONE (12:04)
[2020-01-04] MEDS ORDERED: Midazolam HCl 2 mg/2 ml Vial ONE (12:44)
[2020-01-04] MEDS ORDERED: Ketamine 50 MG/ML (10ML VIAL) ONE (12:46)
[2020-01-04] MEDS ORDERED: Heparin 10,000 UNITS/ 10 ML VIAL ONE (14:05)
[2020-01-04] MEDS ORDERED: SUGAMMADEX SODIUM 500 MG/5 ML VIAL ONE (15:56)
[2020-01-04] MEDS ORDERED: Nitroglycerin 50 MG/250 ML BOT 250 ML IVPB PRN (18:17)
[2020-01-04] MEDS ORDERED: Phenylephrine 10 MG in Sodium Chloride 0.9% 250 ML 250 ML IVPB PRN (18:17)
[2020-01-04] MEDS ORDERED: Ondansetron PF 4 MG/2 ML Vial IVP PRN (18:17)
[2020-01-04] MEDS ORDERED: traMADol HCl 50 MG TAB PO PRN (18:17)
[2020-01-04] MEDS ORDERED: Dextrose 5% in Water 1,000 ML IV PRN (18:28)
[2020-01-04] MEDS ORDERED: Dextrose 50% Abboject 50 ML SYRINGE IVP PRN (18:28)
[2020-01-04] MEDS ORDERED: Amlodipine 10 MG TAB PO SCH (18:30)
[2020-01-04 18:39] VITALS: BMI 27.2
[2020-01-04] MEDS: CEFAZOLIN 2 GM in Premix Bag 1 BAG IVPB SCH (20:05)
[2020-01-04] MEDS ORDERED: Simvastatin 10 MG TAB PO SCH (21:00)
[2020-01-04] MEDS: Docusate 100 MG CAP PO SCH (21:25)
[2020-01-05] MEDS: Insulin Regular 300 UNITS/3 ML VIAL SC PRN ×2 (00:35→05:31)
[2020-01-05] MEDS: CEFAZOLIN 2 GM in Premix Bag 1 BAG IVPB SCH (04:12)
[2020-01-05] MEDS ORDERED: Calcitriol 0.25 MCG CAP PO SCH (09:00)
[2020-01-05] MEDS ORDERED: INSULIN DEGLUDEC 10 UNIT SQ SCH (09:00)
[2020-01-05] MEDS ORDERED: Amlodipine 10 MG TAB PO SCH (09:00)
[2020-01-05] MEDS ORDERED: Non-Formulary Item 1 EACH (Insulin Detemir [Levemir] 10 UNITS) SQ SCH (09:00)
[2020-01-05] MEDS ORDERED: Alogliptin 6.25 MG TAB PO SCH (09:00)
[2020-01-05] MEDS ORDERED: Aspirin Chewable 81 MG TAB PO SCH (09:00)
[2020-01-05] MEDS ORDERED: Insulin Glargine 20 UNITS in Pre-Filled Syringe 1 EACH SC SCH (09:00)
[2020-01-05] MEDS ORDERED: Carvedilol 6.25 MG TAB PO SCH (09:00)
[2020-01-05 10:03] VITALS: TEMP 98.2
[2020-01-05] MEDS: Docusate 100 MG CAP PO SCH (10:34)
[2020-01-05 10:54] VITALS: BP 126/72
[2020-01-05] MEDS ORDERED: Heparin 10,000 UNITS/ 10 ML VIAL ONE (11:16)
--- NOTE | 2020-01-05 18:23 | OP ---
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 PROCEDURE PERFORMED: Left carotid endarterectomy with bovine patch angioplasty. ANESTHESIA: General. ESTIMATED BLOOD LOSS: 150 mL. DESCRIPTION OF PROCEDURE: After adequate anesthesia had been obtained, patient was placed with the shoulder roll and the head turned to the right, prepped and draped. Incision was made in the neck and carried down through the platysma, rotating sternocleidomastoid muscle laterally. Facial vein was ligated, clipped, and divided. Common internal and external carotid arteries were mobilized. Patient was heparinized and ACT was about 300 seconds. Clamps were applied. Arteriotomy performed through very severe calcified plaque and a 10-[place]ov[place] shunt was placed. The plaque was then removed and the area thoroughly irrigated with nice tapering distally. Proximally, there was significant plaque. Following irrigation, a bovine patch was used to close the arteriotomy, removing the shunt, back flushing and forward flushing the vessels and then restoring flow up the external and then internal carotid artery. After obtaining good hemostasis, the wound was irrigated and closed in layers. Job ID: [id number]
--- NOTE | 2020-01-05 18:53 | CON ---
DATE OF CONSULTATION: 01/05/2020 CONSULTING PHYSICIAN: Dr. Bar REASON FOR CONSULTATION: End-stage renal disease evaluation. REASON FOR ADMISSION: Elective admission for carotid endarterectomy. HISTORY OF PRESENT ILLNESS: This is an 79-year-old male with history of end-stage renal disease, on hemodialysis, hypertension, who came to the hospital, electively admitted for carotid endarterectomy. The patient is due for dialysis today. Nephrology is consulted. The patient usually gets dialysis at [facility] on Friday, Friday, and Friday. No fever or chills. No nausea or vomiting. PAST MEDICAL HISTORY: Positive for end-stage renal disease, hypertension, diabetes. PAST SURGICAL HISTORY: Dialysis access placement, and currently carotid endarterectomy. HOME MEDICATIONS: Reviewed. ALLERGIES: NO KNOWN DRUG ALLERGIES. SOCIAL HISTORY: No smoking or alcohol. FAMILY HISTORY: No history of kidney disease. REVIEW OF SYSTEMS: CONSTITUTIONAL: Negative for weight loss or gain, ability to conduct usual activities. SKIN: Negative for rash, itching. EYES: Negative for double vision, pain. ENT/MOUTH: Negative for nose bleeding, neck stiffness, pain, tenderness. CARDIOVASCULAR: Negative for palpitations, dyspnea on exertion, orthopnea. RESPIRATORY: Negative for shortness of breath, wheezing, cough, hemoptysis, fever or night sweats. GASTROINTESTINAL: Negative for poor appetite, abdominal pain, heartburn, nausea, vomiting, constipation, or diarrhea. GENITOURINARY: Negative for urgency, frequency, dysuria, nocturia. MUSCULOSKELETAL: Negative for pain, swelling. NEUROLOGIC/PSYCHIATRIC: Negative for anxiety, depression. ALLERGY/IMMUNOLOGIC: Negative for skin rash, bleeding tendency. PHYSICAL EXAMINATION: GENERAL: This is a well-built male, in no apparent distress. VITAL SIGNS: Temperature 98.2, pulse 77, respirations 23, blood pressure 120/79. HEENT: Atraumatic and normocephalic. Oral mucosa is moist. NECK: Supple. CV: S1 and S2. Rate and rhythm regular. RESPIRATORY: Clear. GI: Abdomen is soft. MUSCULOSKELETAL: No tenderness. No edema. DERMATOLOGIC: No rash. NEUROLOGIC: Alert and awake. PSYCHIATRIC: Normal mood and affect. LABORATORY DATA: Not done today. ASSESSMENT AND PLAN: 1. End-stage renal disease. We will have dialysis today. Labs ordered. 2. Edema, controlled. 3. Hypertension. 4. Anemia of chronic disease. We will have dialysis today per his regular order. Labs ordered. Thank you for the consult. Job ID: [id number]
--- NOTE | 2020-01-06 08:16 | DIS ---
DATE OF ADMISSION: 01/04/2020 DATE OF DISCHARGE: 01/05/2020 The patient was admitted for elective left carotid endarterectomy. This was undertaken and his postoperative course was unremarkable. He had some mild hypertension, but his p.o. medications were resumed. His neurologic exam is baseline with some dementia and he will be discharged home today and to follow up with me in 2 to 3 weeks. He will get dialyzed prior to discharge today. Job ID: [id number]
== END 2020-01-05 12:50 | disposition home or self-care (01) | DRG 37 ==
LOC: SURG A 01-04 11:42 → CCU 01-04 16:51
PROVIDERS: ADMIT Thoracic Surgery (Cardiothoracic Vascular Surgery); ATTEND Thoracic Surgery (Cardiothoracic Vascular Surgery)
PROC: 03CJ0ZZ Extirpation of Matter from Left Common Carotid Artery, Open Approach (ICD-10-PCS; principal; 2020-01-04)
PROC: 03UJ0KZ Supplement Left Common Carotid Artery with Nonautologous Tissue Substitute, Open Approach (ICD-10-PCS; 2020-01-04)
PROC: 5A1D70Z Performance of Urinary Filtration, Intermittent, Less than 6 Hours Per Day (ICD-10-PCS; 2020-01-05)
DX: I65.22 Occlusion and stenosis of left carotid artery (principal); N18.6 End stage renal disease; I12.0 Hypertensive chronic kidney disease with stage 5 chronic kidney disease or end stage renal disease; E78.5 Hyperlipidemia, unspecified; F03.90 Unspecified dementia, unspecified severity, without behavioral disturbance, psychotic disturbance, mood disturbance, and anxiety; E11.22 Type 2 diabetes mellitus with diabetic chronic kidney disease; E66.9 Obesity, unspecified; E55.9 Vitamin D deficiency, unspecified; D63.1 Anemia in chronic kidney disease; K21.9 Gastro-esophageal reflux disease without esophagitis; Z99.2 Dependence on renal dialysis; Z79.899 Other long term (current) drug therapy; Z79.82 Long term (current) use of aspirin; Z68.34 Body mass index [BMI] 34.0-34.9, adult
CPT/HCPCS: 36416; 90935; G0257; J0690; J1100; J1642; J1644; J1815; J2250; J2405; J2704; J2720; J3010

== ENCOUNTER 2019-12-30 07:59 | Outpatient (CLI) | payer MEDICARE, OTHER ==
[2019-12-30 17:56] LABS: Hemoglobin 13.4 g/dL (14.0-18.0); Mean Corpuscular HGB CONC 32.9 g/dL (32.0-36.0); Mean Corpuscular Hemoglobin 30.7 pg (27.0-31.0); Mean Corpuscular Volume 93.4 fL (78.0-98.0); Mean Platelet Volume 8.6 fL (7.4-10.4); Platelet Count 221 thou/uL (130-400); Red Blood Cell (RBC) Count 4.35 mill/uL (4.70-6.10)
[2019-12-30 18:02] LABS: Anion Gap 13 mmol/L (10-20); BUN (Urea Nitrogen) 27 mg/dL (8.4-25.7); Calc. Creatinine Clearance 0 mL/min (70-130); Calcium 8.7 mg/dL (7.8-10.44); Carbon Dioxide 30 mmol/L (23-31); Chloride 94 mmol/L (98-107); Estimated GFR-MDRD 17; Glucose 161 mg/dL (83-110); Potassium 4.1 mmol/L (3.5-5.1); Sodium 133 mmol/L (136-145)
[2019-12-31 13:42] LABS: SARS-CoV-2 MS2 Positive; SARS-CoV-2 N Gene Negative; SARS-CoV-2 S Gene Negative; SARS-CoV-2 by NAA Not Detected (NotDetected); SARS-CoV-2 orf1ab Negative
== END 2019-12-30 08:00 | disposition home or self-care (01) ==
LOC: LABBT 07:59
PROVIDERS: ATTEND Thoracic Surgery (Cardiothoracic Vascular Surgery)
DX: Z01.812 Encounter for preprocedural laboratory examination (principal); I65.29 Occlusion and stenosis of unspecified carotid artery; Z20.828 Contact with and (suspected) exposure to other viral communicable diseases
CPT/HCPCS: 80048; 85027; U0003; 87635